=== PATIENT | male | born 1940 | race Caucasian/White ===

== ENCOUNTER → 2023-06-20 16:00 | Outpatient (REF) | payer MEDICARE, SELFPAY ==
[2023-06-21 17:58] LABS: Urine Albumin 3+ (Neg - Trace); Urine Bilirubin Negative (Negative); Urine Character Slightly Cloudy (Clear); Urine Color Yellow; Urine Glucose 2+ (Negative); Urine Ketone 1+ (Negative); Urine Leukocyte 2+ (Negative); Urine Nitrite Negative (Negative); Urine Occult Blood 4+ (Negative); Urine Specific Gravity 1.025 (<1.030); Urine Urobilinogen Negative (Neg - 1+)
[2023-06-21 18:02] LABS: Urine Bacteria Many (Negative); Urine Squamous Cell 16-20 /LPF (Few); Urine White Cell 50-60 /HPF (0-5)
== END ==
LOC: CLAB 16:00
PROVIDERS: ATTENDING PHYSICIAN Urology
DX: N40.1 Benign prostatic hyperplasia with lower urinary tract symptoms (principal); N40.0 Benign prostatic hyperplasia without lower urinary tract symptoms
CPT/HCPCS: 81003; 81015; 87077; 87086

== ENCOUNTER → 2023-07-28 08:38 | Outpatient (REF) | payer MEDICARE, SELFPAY ==
[2023-07-28 10:09] LABS: Urine Albumin 2+ (Neg - Trace); Urine Bilirubin Negative (Negative); Urine Character Clear (Clear); Urine Color Yellow; Urine Glucose 3+ (Negative); Urine Ketone Negative (Negative); Urine Leukocyte Negative (Negative); Urine Nitrite Negative (Negative); Urine Occult Blood Negative (Negative); Urine Specific Gravity 1.015 (<1.030); Urine Urobilinogen Negative (Neg - 1+)
[2023-07-28 10:20] LABS: % Basophils 0.6 % (0-2); % Eosinophils 3.2 % (0-6); % Immature Granulocytes 0.3 % (0-0.5); % Lymphocytes 17.4 % (20.5-51.1); % Monocytes 8.8 % (1.7-9.3); % Neutrophils 69.7 % (42.2-75.2); Absolute Eosinophils 0.2 10^3/uL (0-0.7); Absolute Lymphocytes 1.3 10^3/uL (1.2-3.4); Absolute Monocytes 0.6 10^3/uL (0.1-0.6); Hematocrit 42.4 % (39.0-52.0); Mean Corp Hgb Conc. 35.4 g/dL (33.0-37.0); Mean Corpuscular Hgb 34.2 pg (27.0-31.0); Mean Corpuscular Volume 96.6 fL (80.0-94.0); Mean Platelet Volume 11.3 fL (7.4-10.4); Nucleated Red Blood Cells % 0 % (-); Platelet Count 190 10^3/uL (130-400); Red Blood Cell Count 4.39 10^6/uL (4.70-6.10); Red Cell Dist. Width 11.7 % (11.5-14.5); White Blood Cell Count 7.2 10^3/uL (4.8-10.8)
[2023-07-28 10:37] LABS: ALT (SGPT) 26 U/L (0-50); AST (SGOT) 26 U/L (17-59); Albumin 4.1 g/dl (3.5-5.0); Alkaline Phosphatase 144 U/L (38-126); Blood Urea Nitrogen 18 mg/dl (9-20); Carbon Dioxide 23 mmol/L (22-30); Chloride 106 mmol/L (98-107); Glucose 218 mg/dl (70-99); HDL Cholesterol 41 mg/dl; LDL Cholesterol, Calculated 53 mg/dl; Potassium 4.1 mmol/L (3.5-5.1); Sodium 140 mmol/L (135-145); Total Bilirubin 1.2 mg/dl (0.2-1.3); Total Cholesterol 118 mg/dl (50-199); Total Protein 6.6 g/dl (6.3-8.2); Triglyceride 122 mg/dl (10-149); Very Low Density Lipoprotein 24 mg/dl (0-30); eGFR > 60.00
[2023-07-28 10:45] LABS: Protein/creatinine Ratio 1.9; Urine Protein 163 mg/dl
[2023-07-28 10:57] LABS: Vitamin D, 25-OH*** 36.8 ng/mL (30-80)
[2023-07-28 11:09] LABS: Urine Amorphous Seen; Urine Red Blood Cell 0-2 /HPF (0-2)
[2023-07-28 11:10] LABS: PSA, Total - Diagnostic 1.39 ng/ml (0.0-4.0)
[2023-07-28 12:02] LABS: Glycohemoglobin (HgbA1c) 8.7 % (4.0-5.6)
[2023-07-30 18:40] LABS: C-Peptide 3.5 ng/mL (0.5-3.3)
== END ==
LOC: REG 08:38
PROVIDERS: ATTENDING PHYSICIAN Internal Medicine Geriatric Medicine
DX: E11.9 Type 2 diabetes mellitus without complications (principal); E78.2 Mixed hyperlipidemia; I10 Essential (primary) hypertension; I25.10 Atherosclerotic heart disease of native coronary artery without angina pectoris; M35.3 Polymyalgia rheumatica; M48.061 Spinal stenosis, lumbar region without neurogenic claudication; Z98.890 Other specified postprocedural states; M17.0 Bilateral primary osteoarthritis of knee; K21.9 Gastro-esophageal reflux disease without esophagitis; N40.1 Benign prostatic hyperplasia with lower urinary tract symptoms; N40.0 Benign prostatic hyperplasia without lower urinary tract symptoms; Z13.89 Encounter for screening for other disorder; M51.36 Other intervertebral disc degeneration, lumbar region; R06.09 Other forms of dyspnea; I21.4 Non-ST elevation (NSTEMI) myocardial infarction; H81.10 Benign paroxysmal vertigo, unspecified ear; M25.561 Pain in right knee; M25.562 Pain in left knee; Z01.818 Encounter for other preprocedural examination; I25.2 Old myocardial infarction
CPT/HCPCS: 36415; 80053; 80061; 81003; 81015; 82306; 82570; 83036; 84153; 84156; 84681; 85025

== ENCOUNTER → 2023-08-05 14:24 | Outpatient (REF) | payer MEDICARE, SELFPAY | LOC: HWRCS 14:24 | PROVIDERS: ATTENDING PHYSICIAN Internal Medicine Cardiovascular Disease; FAMILY PHYSICIAN Internal Medicine Geriatric Medicine | DX: E78.2 Mixed hyperlipidemia (principal); I25.10 Atherosclerotic heart disease of native coronary artery without angina pectoris; I10 Essential (primary) hypertension; E11.9 Type 2 diabetes mellitus without complications; Z01.818 Encounter for other preprocedural examination; I48.91 Unspecified atrial fibrillation | CPT/HCPCS: 71046 ==

== ENCOUNTER → 2023-08-11 07:33 | Outpatient (REF) | payer MEDICARE, SELFPAY | LOC: HWRCS 07:33 | PROVIDERS: ATTENDING PHYSICIAN Internal Medicine Cardiovascular Disease; FAMILY PHYSICIAN Internal Medicine Geriatric Medicine | DX: E78.2 Mixed hyperlipidemia (principal); I25.10 Atherosclerotic heart disease of native coronary artery without angina pectoris; I10 Essential (primary) hypertension; E11.9 Type 2 diabetes mellitus without complications; Z01.818 Encounter for other preprocedural examination; I48.91 Unspecified atrial fibrillation | CPT/HCPCS: 93306 ==

== ENCOUNTER → 2023-08-12 10:59 | Outpatient (REF) | payer MEDICARE, SELFPAY | LOC: DHCBC/DCA 10:59 | PROVIDERS: ATTENDING PHYSICIAN Internal Medicine Cardiovascular Disease; FAMILY PHYSICIAN Internal Medicine Geriatric Medicine | DX: E78.2 Mixed hyperlipidemia (principal); I25.10 Atherosclerotic heart disease of native coronary artery without angina pectoris; I10 Essential (primary) hypertension; E11.9 Type 2 diabetes mellitus without complications; Z01.818 Encounter for other preprocedural examination; I48.91 Unspecified atrial fibrillation | CPT/HCPCS: 78452; 93017; A9500; J2785 ==

== ENCOUNTER 2023-08-15 06:13 | Inpatient (IN) | payer MEDICARE, SELFPAY ==
--- NOTE | 2023-07-27 13:30 | CM ---
Addendum entered by Leticia Adam 08/12/23 08:13:
Referral sent to [facility] through [employer] with request for start of care on 08/16.
Original Note:
Patient is scheduled for an elective R THR on 08/15/23. Spoke with patient prior to surgery via telephone. Introduced role of Orthopedic Navigator. Patient reports that he lives alone in a two story home. There are two steps to enter and a flight of
steps to the second floor. There is a powder room on the clerk entry level. He currently functions independently. He has no DME and had VN services after his prior THR in 2000. PCP is Dr. Serrano.
Discussed orthopedic program and post surgical plans. Reviewed anticipated length of stay and that goal is for him to return home at discharge. Also reviewed outpatient PT, VN services and DME he will need. Patient is in agreement with tentative
plan but will not have transport for outpatient PT and will need VN services (Options and PAC data reviewed; he selects VN). He is unsure if anyone will stay with him when he goes home.
Patient will complete online education.
Plan: Orthopedic Navigator will remain available to assist with the care of patient and will reassess discharge needs after surgery.
[2023-07-29 14:01] VITALS: BMI 33.9
[2023-07-29 14:08] VITALS: BMI 33.9
--- NOTE | 2023-08-05 15:01 | PTCARENOTE ---
Addendum entered by Cheyanne Garner RN 08/09/23 11:32:
PA made aware per request from Dr. Potts office.
Original Note:
HgA1C 8.7, Sudha at Dr. Potts office made aware.
[2023-08-15] VITALS (27 sets, daily range): BP systolic 102–204; BP diastolic 57–175; PULSE 96–100
[2023-08-15 07:45] LABS: Glucose - Point of Care 222 mg/dl (70-99)
[2023-08-15] MEDS: NORMOSOL-R 1000 IV ×2 (07:45→11:38)
[2023-08-15] MEDS: TYLENOL 650 MG PO ×4 (07:57→23:00)
[2023-08-15] MEDS: CELEBREX 200 MG PO (08:09)
[2023-08-15] MEDS: NOVOLOG vial 2 UNITS SC ×2 (08:14→10:55)
[2023-08-15] MEDS: ROXICODONE 5 MG PO ×2 (11:39→23:00)
--- NOTE | 2023-08-15 12:33 | PTCARENOTE ---
awaiting room assignment, pt. daughter updated on pt. status
[2023-08-15 13:00] LABS: Glucose - Point of Care 194 mg/dl (70-99)
[2023-08-15] MEDS: NOVOLOG FLEXPEN-MODERATE RESISTANCE 1 UNITS SC (13:49)
[2023-08-15] MEDS: NOVOLOG FLEXPEN 4 UNITS SC ×2 (13:49→19:37)
[2023-08-15] MEDS: NEURONTIN 300 MG PO (13:50)
--- NOTE | 2023-08-15 14:05 | PTCARENOTE ---
PT at bedside
[2023-08-15] MEDS: NOVOLOG FLEXPEN SC (15:45)
--- NOTE | 2023-08-15 15:45 | PTCARENOTE ---
Pt received from the PACU via bed. Transport was w/o incident. Pt is AAOx3, HR sl irreg. Lungs are clear, resp. easy, pulse ox 96%RA. Right hip w/ aquacell dressing to right hip C/D/I, no drainage at this time. Pt denies pain, denies nausea. Pt able
to wiggle toes and foot on right. Pt reports having full feeling to right lower ext. Pt instructed on plan of care. Pt verbalized understanding of instructions. Call lal is within reach.
[2023-08-15 17:51] LABS: Glucose - Point of Care 434 mg/dl (70-99)
[2023-08-15] MEDS: SERAX PO (18:05)
[2023-08-15] MEDS: GLUCOPHAGE 500 MG PO (18:07)
[2023-08-15] MEDS: LIPITOR 20 MG PO (18:07)
[2023-08-15] MEDS: ELIQUIS 2.5 MG PO (18:07)
[2023-08-15] MEDS: ANCEF 5 IV (18:08)
[2023-08-15] MEDS: THIAMINE INJECTION 200 MG IV (18:08)
[2023-08-15] MEDS: AMARYL 1 MG PO (18:10)
[2023-08-15] MEDS: NOVOLOG FLEXPEN-MODERATE RESISTANCE SC (18:10)
[2023-08-15 18:46] LABS: Glucose 417 mg/dl (70-99)
[2023-08-15] MEDS: COLACE 100 MG PO (19:35)
[2023-08-15] MEDS: BACTROBAN 2% OINTMENT 1 APPLIC NASAL (19:35)
[2023-08-15] MEDS: PROTONIX 40 MG PO (19:36)
[2023-08-15] MEDS: SENOKOT 17.1999999999999993 MG PO (19:36)
[2023-08-15] MEDS: FLOMAX 0.400000000000000022 MG PO (19:36)
[2023-08-15] MEDS: SERAX 10 MG PO (19:36)
[2023-08-15] MEDS: NOVOLOG FLEXPEN-MODERATE RESISTANCE 11 UNITS SC (19:37)
[2023-08-15] MEDS: LANTUS 0.100000000000000006 UNITS SC (19:40)
--- NOTE | 2023-08-15 19:45 | PTCARENOTE ---
at 1821 blood [id number] -informed Calista Triplett FAVOR MAKER- no new orders to give schedule meds and recheck in 2 hrs. administered Lantus 10units, and NovoLog 15 units total - see may. rechecked 2 hrs later [id number] informed Calista Triplett FAVOR MAKER administered
novolog 10units. pt has no symptoms. pt resting in bed.
[2023-08-15 22:00] LABS: Glucose - Point of Care 351 mg/dl (70-99)
[2023-08-15] MEDS: AMBIEN 5 MG PO (22:37)
[2023-08-15] MEDS: NOVOLOG FLEXPEN 10 UNITS SC (22:37)
[2023-08-16] VITALS (7 sets, daily range): BP systolic 95–148; BP diastolic 55–84; PULSE 56–89; O2SAT 96–98
--- NOTE | 2023-08-16 00:33 | PTCARENOTE ---
reviewed post op wound care, ambulation, and precautions. pt walked 100 feet in hallways w/ RW. pt report pain after walk given prn pain med w/+eff.
[2023-08-16] MEDS: ANCEF 5 IV (01:59)
[2023-08-16] MEDS: TYLENOL 650 MG PO ×3 (03:18→12:06)
[2023-08-16 07:17] LABS: Glucose - Point of Care 244 mg/dl (70-99)
[2023-08-16] MEDS: NOVOLOG FLEXPEN-MODERATE RESISTANCE 3 UNITS SC (08:40)
[2023-08-16] MEDS: NOVOLOG FLEXPEN 4 UNITS SC ×2 (08:40→12:04)
[2023-08-16] MEDS: GLUCOPHAGE 500 MG PO (08:41)
[2023-08-16] MEDS: SENOKOT 17.1999999999999993 MG PO (08:42)
[2023-08-16] MEDS: ZESTRIL 20 MG PO (08:42)
[2023-08-16] MEDS: AMARYL 1 MG PO (08:42)
[2023-08-16] MEDS: ELIQUIS 2.5 MG PO (08:42)
[2023-08-16] MEDS: PROTONIX 40 MG PO (08:42)
[2023-08-16] MEDS: FLOMAX 0.400000000000000022 MG PO (08:42)
[2023-08-16] MEDS: ROXICODONE 5 MG PO (08:42)
[2023-08-16] MEDS: SERAX 10 MG PO (08:43)
[2023-08-16] MEDS: COLACE 100 MG PO (08:43)
[2023-08-16] MEDS: IMDUR (EXTENDED RELEASE) 30 MG PO (08:43)
[2023-08-16] MEDS: THIAMINE INJECTION 200 MG IV (08:43)
[2023-08-16] MEDS: LANTUS 0.100000000000000006 UNITS SC (08:49)
[2023-08-16] MEDS: CARDIZEM CD 180 MG PO (08:51)
[2023-08-16] MEDS: BACTROBAN 2% OINTMENT 1 APPLIC NASAL (08:51)
--- NOTE | 2023-08-16 09:20 | CM ---
Reviewed chart and held rounds with PT, OT and nursing. Patient admitted as planned for elective R THR. Met with patient at bedside. Confirmed information previously obtained for assessment. Also discussed discharge plans. The plan is for patient to
return home at discharge. His daughter will be staying with him for the week. Reviewed VN services including start of care (tentatively 08/16), services to be ordered (PT, OT, SN) and frequency/duration of services. Options list provided and PAC
data reviewed. Patient selects [facility].
Patient has a rolling walker, raised toilet seat, hip kit, grab bars in shower, raised toilet seat with rails and a cane at home.
His daughter will bring in new walker to be adjusted by PT.
VN referral was completed and sent to [facility] through [employer] with request for start of care on 08/16. Confirmation received of their ability to accept case. medical records clerk to fax discharge instructions to [facility] when complete.
Navigator checked winter of Eliquis per PA request. Patient to be discharged on Eliquis. Cost for 30 day supply of 5 mg is $47.00. Patient stated he is able to afford this medication.
Patient will use [facility] pharmacy for discharge prescriptions.
--- NOTE | 2023-08-16 10:09 | W.PN.ORTHO ---
Today's Communication / Plan
-
d/c
Assessment
.
Distal Motor Intact: Yes
Dressing:
Clean, dry and intact.
Assessment:
Afibb-rate controlled on Diltiazem-stable on tele-Eliquis initiated
CAD-s/p PCI AAKASH to distal RCA 2002, residual multivessel stenosis--continue asa 81mg w/ statin
Type 2 IDDM-uncontrolled--A1C 8.7--SSI and standing Novolog as well as Lantus utilized during stay-oral hypoglycemics will be increased OP w/ Endocrine visit and strict carb control advised--Cefadroxil ppx
Daily ETOH-Serax, Thimine and Gabapentin-stable
Plan
.
Surgery / Date: R DERICK 08/15/23 CBB
Activity:
Out of bed.
PT/OT
Discharge Plan: Home w/ VN
Subjective
.
.:
Patient resting comfortably.
Vital Signs and Labs
.
Vital Signs and Labs:
Lab Results
07/29/23 13:33
08/15/23 18:21
Temp Pulse Resp BP Pulse Ox
97.8 F 66 20 148/81 97
08/16/23 07:52 08/16/23 07:52 08/16/23 07:52 08/16/23 07:52 08/16/23 07:52
Non-invasive Hgb result: 12.3
Physical Exam
-
HEENT: No pallor, cyanosis, or jaundice. Throat clear.
NECK: Supple. No JVD.
RESPIRATORY: Lungs clear to auscultation.
CVS: S1, S2 normal. RRR.� No murmur, rub or gallop.
ABDOMEN: Soft, non-tender. No distension. BS+/normal.
EXTREMITIES: strength equal, no calf pain with palpation
CONSTRUCTION PIT WORKER: AOx3. No focal deficits. supervising nurse grossly intact
--- NOTE | 2023-08-16 10:33 | W.DS.TRANS ---
DC Summary - Documentation Consultant
-
Discharge Instructions:
Sleep Apnea Risk Intermediate
Discharge Diagnosis/Procedures R DERICK 08/15/23 CBB
Diet Diabetic, Carb Controlled
Additional Diets very strict carb control
Activity With Walker
Driving Restrictions No driving
Bathing Restrictions OK to Shower
Other Services VN,PT,OT
Instructions:
Stand-Alone Forms: Total Hip/Knee Replacement D/C
Changes to Home Medications: Yes
Discharge Medications:
DC Medications w/original date entered in [employer]
tamsulosin 0.4 mg capsule 0.4 mg PO BID 06/06/14
zolpidem 10 mg tablet (Ambien) 10 mg PO HS 06/06/14
cholecalciferol (vitamin D3) 25 mcg (1,000 unit) capsule (Vitamin D3) 1,000 unit PO DAILY 06/06/17
diltiazem HCl 180 mg capsule,extended release 24 hr 180 mg PO DAILY 06/06/17
lisinopril 20 mg tablet 20 mg PO DAILY 06/06/17
aspirin 81 mg tablet,delayed release 81 mg PO DAILY 08/19/17
Pantoprazole Sodium 40 mg PO BID 05/19/18
atorvastatin 20 mg tablet 20 mg PO QPM #90 tabs 05/19/18
nitroglycerin 0.4 mg sublingual tablet 0.4 mg sublingual [id number] PRN chest pain #25 tabs 05/19/18
isosorbide mononitrate 30 mg tablet,extended release 24 hr 30 mg PO DAILY 07/27/23
metformin 500 mg tablet 500 mg PO BID 07/27/23
mupirocin 2 % topical ointment 1 applic topical BID infection prevention #1 tube 07/29/23
Saccharomyces boulardii 250 mg capsule (Florastor) 250 mg PO BID #1 cap 08/16/23
apixaban 5 mg tablet (Eliquis) 2.5 mg (1/2 x 5 mg) PO BID afibb/blood clot prevent #60 tabs 08/16/23
cefadroxil 500 mg capsule 500 mg PO BID infection prevention #14 caps 08/16/23
docusate sodium 100 mg capsule (Colace) 100 mg PO BID stool softner #1 cap 08/16/23
gabapentin 300 mg capsule 300 mg PO BID sleep/pain #14 caps 08/16/23
glimepiride 1 mg tablet 1 mg PO BID Diabetes #60 tabs 08/16/23
magnesium hydroxide 400 mg/5 mL oral suspension (Milk of Magnesia) 30 ml PO HS PRN Constipation #1 mL 08/16/23
oxycodone 5 mg tablet 5 mg PO Q6H PRN 1 tab moderate pain, 2 tabs severe pain #30 tabs 08/16/23
sennosides 8.6 mg tablet (Senokot) 17.2 mg (2 x 8.6 mg) PO BID laxative #2 tabs 08/16/23
thiamine HCl (vitamin B1) 250 mg tablet 250 mg PO DAILY #1 tab 08/16/23
Home Medication Changes
apixaban 5 mg tablet (Eliquis) 2.5 mg (1/2 x 5 mg) PO BID afibb/blood clot prevent #60 tabs 08/16/23�
cefadroxil 500 mg capsule 500 mg PO BID infection prevention #14 caps 08/16/23�
gabapentin 300 mg capsule 300 mg PO BID sleep/pain #14 caps 08/16/23�
glimepiride 1 mg tablet 1 mg PO BID Diabetes #60 tabs 08/16/23�
oxycodone 5 mg tablet 5 mg PO Q6H PRN 1 tab moderate pain, 2 tabs severe pain #30 tabs 08/16/23�
thiamine HCl (vitamin B1) 250 mg tablet 250 mg PO DAILY #1 tab 08/16/23�
Pending Results: No
[2023-08-16 11:10] LABS: Glucose 209 mg/dl (70-99)
--- NOTE | 2023-08-16 12:00 | PTCARENOTE ---
Diabetes Education- Met with Murray and his daughter (visiting from [place]) in room for glucometer instructions. A1C 8.7%, 07/28/23. AIRPORT MANAGER taking Metformin 500 mg with breakfast and 2000, recommend taking with breakfast and dinner, as well as Glimepiride 1
mg BID. This dose was recently increased from QD to BID.Recommend taking this prior to breakfast and dinner. States he is 90% compliant in taking medications. Provided with and instructions given on the Contour NExt EZ glucometer, fair return
demonstration with result of 277 mg/dl pre lunch. He has some dexterity issues with his hands which created issues with the lancing device cap, had him practice a few times. Education booklet with testing pattern and expected results marked for
reference. Discussed actions and side effects of medications and importance of reducing CHO intake. TO call his PCP on Tuesday with results of blood sugars (log sheet provided). Daughter will be staying until the weekend to help reinforce
information. Phone number provided for follow up questions. Information on outpt DSME classes given.
[2023-08-16 12:02] LABS: Glucose - Point of Care 272 mg/dl (70-99)
[2023-08-16] MEDS: ProAmatine 5 MG PO ×2 (12:04→14:46)
[2023-08-16] MEDS: NORMOSOL-R 500 IV (12:04)
[2023-08-16] MEDS: NOVOLOG FLEXPEN-MODERATE RESISTANCE 5 UNITS SC (12:05)
[2023-08-16] MEDS: LANTUS 0.0500000000000000028 UNITS SC (12:18)
[2023-08-16] MEDS: ProAmatine PO (14:46)
--- NOTE | 2023-08-16 15:24 | PTCARENOTE ---
Rn flow student support advisor-Patient cleared for d/c. Paged the Physical physical therapy asst to transport patient to car.
[2023-08-18 13:02] LABS: Glucose - Point of Care 209 mg/dl (70-99)
== END 2023-08-16 15:42 | disposition home health service (06) | DRG 470 ==
LOC: 2 SOUTH 06:13
PROVIDERS: Physician Assistant Medical; ADMITTING PHYSICIAN Specialist; FAMILY PHYSICIAN Internal Medicine Geriatric Medicine
PROC: 0SR902Z Replacement of Right Hip Joint with Metal on Polyethylene Synthetic Substitute, Open Approach (ICD-10-PCS; 2023-08-15)
DX: M16.11 Unilateral primary osteoarthritis, right hip (principal); E11.65 Type 2 diabetes mellitus with hyperglycemia; E66.9 Obesity, unspecified; Z68.33 Body mass index [BMI] 33.0-33.9, adult; I10 Essential (primary) hypertension; M35.3 Polymyalgia rheumatica; G47.00 Insomnia, unspecified; E78.2 Mixed hyperlipidemia; I25.10 Atherosclerotic heart disease of native coronary artery without angina pectoris; I48.91 Unspecified atrial fibrillation; K21.9 Gastro-esophageal reflux disease without esophagitis; M48.00 Spinal stenosis, site unspecified; N40.0 Benign prostatic hyperplasia without lower urinary tract symptoms; R91.1 Solitary pulmonary nodule; Z96.612 Presence of left artificial shoulder joint; Z96.642 Presence of left artificial hip joint; Z79.82 Long term (current) use of aspirin; Z79.84 Long term (current) use of oral hypoglycemic drugs; Z79.899 Other long term (current) drug therapy; Z95.5 Presence of coronary angioplasty implant and graft; Z87.891 Personal history of nicotine dependence; Z88.2 Allergy status to sulfonamides
CPT/HCPCS: 36415; 73502; 78452; 82947; 82962; 87070; 93005; 93017; 97110; 97116; 97162; 97166; 97530; 97535; A9500; J2785

== ENCOUNTER → 2023-08-19 13:24 | Outpatient (REF) | payer MEDICARE, SELFPAY | LOC: REG 13:24 | PROVIDERS: ATTENDING PHYSICIAN Internal Medicine Geriatric Medicine; REFERRING PHYSICIAN Specialist | DX: R19.7 Diarrhea, unspecified (principal) | CPT/HCPCS: 87324; 87449 ==

== ENCOUNTER 2023-10-12 08:54 | Outpatient (RCR) | payer MEDICARE, SELFPAY | END 2023-10-12 23:59 | disposition home or self-care (01) | LOC: RPT 08:54 | PROVIDERS: ATTENDING PHYSICIAN Specialist; FAMILY PHYSICIAN Internal Medicine Geriatric Medicine | DX: Z47.1 Aftercare following joint replacement surgery (principal); Z96.641 Presence of right artificial hip joint; Z73.6 Limitation of activities due to disability | CPT/HCPCS: 97110; 97161; 97530 ==

== ENCOUNTER 2023-11-04 08:49 | Outpatient (RCR) | payer MEDICARE, SELFPAY | END 2023-11-04 23:59 | disposition home or self-care (01) | LOC: RPT 08:49 | PROVIDERS: ATTENDING PHYSICIAN Specialist; FAMILY PHYSICIAN Internal Medicine Geriatric Medicine | DX: Z47.1 Aftercare following joint replacement surgery (principal); Z96.641 Presence of right artificial hip joint; Z73.6 Limitation of activities due to disability | CPT/HCPCS: 97110 ==

== ENCOUNTER → 2023-11-16 08:32 | Outpatient (REF) | payer MEDICARE, SELFPAY ==
[2023-11-16 11:52] LABS: ALT (SGPT) 13 U/L (0-50); AST (SGOT) 21 U/L (17-59); Alkaline Phosphatase 140 U/L (38-126); Blood Urea Nitrogen 23 mg/dl (9-20); Carbon Dioxide 19 mmol/L (22-30); Chloride 106 mmol/L (98-107); Glucose 160 mg/dl (70-99); Potassium 3.8 mmol/L (3.5-5.1); Sodium 143 mmol/L (135-145); Total Bilirubin 1.2 mg/dl (0.2-1.3); Total Protein 6.2 g/dl (6.3-8.2); eGFR > 60.00
[2023-11-16 12:41] LABS: Glycohemoglobin (HgbA1c) 5.6 % (4.0-5.6)
[2023-11-17 23:52] LABS: C-Peptide 3.5 ng/mL (0.5-3.3)
== END ==
LOC: REG 08:32
PROVIDERS: ATTENDING PHYSICIAN Internal Medicine Geriatric Medicine
DX: E11.9 Type 2 diabetes mellitus without complications (principal); E78.2 Mixed hyperlipidemia; E11.65 Type 2 diabetes mellitus with hyperglycemia
CPT/HCPCS: 36415; 80053; 83036; 84681

== ENCOUNTER 2023-11-23 10:18 | Outpatient (RCR) | payer MEDICARE, SELFPAY | END 2023-11-23 13:00 | disposition home or self-care (01) | LOC: RPT 10:18 | PROVIDERS: ATTENDING PHYSICIAN Specialist; FAMILY PHYSICIAN Internal Medicine Geriatric Medicine | DX: Z47.1 Aftercare following joint replacement surgery (principal); Z73.6 Limitation of activities due to disability; R26.2 Difficulty in walking, not elsewhere classified; M62.81 Muscle weakness (generalized); Z96.641 Presence of right artificial hip joint | CPT/HCPCS: 97110; 97112 ==

== ENCOUNTER → 2023-11-28 13:22 | Outpatient (REF) | payer MEDICARE, SELFPAY ==
[2023-11-28 14:17] LABS: % Basophils 0.8 % (0-2); % Eosinophils 4.1 % (0-6); % Immature Granulocytes 0.3 % (0-0.5); % Lymphocytes 18.1 % (20.5-51.1); % Monocytes 10.1 % (1.7-9.3); % Neutrophils 66.6 % (42.2-75.2); Absolute Basophils 0.1 10^3/uL (0-0.2); Absolute Eosinophils 0.3 10^3/uL (0-0.7); Absolute Lymphocytes 1.1 10^3/uL (1.2-3.4); Absolute Monocytes 0.6 10^3/uL (0.1-0.6); Absolute Neutrophils 4.2 10^3/uL (1.4-6.5); Hematocrit 39.5 % (39.0-52.0); Hemoglobin 13.5 g/dL (13.0-18.0); Mean Corp Hgb Conc. 34.2 g/dL (33.0-37.0); Mean Corpuscular Hgb 32.5 pg (27.0-31.0); Mean Platelet Volume 10.6 fL (7.4-10.4); Nucleated Red Blood Cells % 0 % (-); Platelet Count 199 10^3/uL (130-400); Red Blood Cell Count 4.16 10^6/uL (4.70-6.10); Red Cell Dist. Width 13.8 % (11.5-14.5); White Blood Cell Count 6.3 10^3/uL (4.8-10.8)
[2023-11-28 14:23] LABS: Erythrocyte Sed Rate 19 mm/hour (0-20)
[2023-11-28 15:04] LABS: ALT (SGPT) 15 U/L (0-50); AST (SGOT) 21 U/L (17-59); Albumin 4.1 g/dl (3.5-5.0); Alkaline Phosphatase 107 U/L (38-126); Blood Urea Nitrogen 20 mg/dl (9-20); Calcium 9.4 mg/dl (8.4-10.2); Carbon Dioxide 19 mmol/L (22-30); Chloride 106 mmol/L (98-107); Glucose 150 mg/dl (70-99); Potassium 4.2 mmol/L (3.5-5.1); Sodium 142 mmol/L (135-145); Total Bilirubin 0.9 mg/dl (0.2-1.3); Total Protein 6.3 g/dl (6.3-8.2); eGFR > 60.00
[2023-11-28 15:06] LABS: C-Reactive Protein < 5.00 mg/L (0.0-10.00)
== END ==
LOC: REG 13:22
PROVIDERS: ATTENDING PHYSICIAN Internal Medicine Rheumatology; FAMILY PHYSICIAN Internal Medicine Geriatric Medicine
DX: M06.00 Rheumatoid arthritis without rheumatoid factor, unspecified site (principal)
CPT/HCPCS: 36415; 80053; 85025; 85652; 86140

== ENCOUNTER → 2024-02-17 07:57 | Outpatient (REF) | payer MEDICARE, SELFPAY ==
[2024-02-17 09:00] LABS: % Basophils 0.9 % (0-2); % Eosinophils 3.5 % (0-6); % Immature Granulocytes 0.3 % (0-0.5); % Lymphocytes 20.4 % (20.5-51.1); % Monocytes 10.7 % (1.7-9.3); % Neutrophils 64.2 % (42.2-75.2); Absolute Basophils 0.1 10^3/uL (0-0.2); Absolute Eosinophils 0.2 10^3/uL (0-0.7); Absolute Lymphocytes 1.4 10^3/uL (1.2-3.4); Absolute Monocytes 0.7 10^3/uL (0.1-0.6); Absolute Neutrophils 4.4 10^3/uL (1.4-6.5); Hematocrit 41.8 % (39.0-52.0); Hemoglobin 14.3 g/dL (13.0-18.0); Mean Corp Hgb Conc. 34.2 g/dL (33.0-37.0); Mean Corpuscular Hgb 33.6 pg (27.0-31.0); Mean Corpuscular Volume 98.4 fL (80.0-94.0); Mean Platelet Volume 10.9 fL (7.4-10.4); Nucleated Red Blood Cells % 0 % (-); Platelet Count 204 10^3/uL (130-400); Red Blood Cell Count 4.25 10^6/uL (4.70-6.10); Red Cell Dist. Width 14.1 % (11.5-14.5); White Blood Cell Count 6.8 10^3/uL (4.8-10.8)
[2024-02-17 09:13] LABS: Urine Albumin 2+ (Neg - Trace); Urine Bilirubin Negative (Negative); Urine Character Clear (Clear); Urine Color Yellow; Urine Glucose Negative (Negative); Urine Ketone Negative (Negative); Urine Leukocyte Negative (Negative); Urine Nitrite Negative (Negative); Urine Occult Blood Negative (Negative); Urine Urobilinogen Negative (Neg - 1+)
[2024-02-17 09:35] LABS: ALT (SGPT) 16 U/L (0-50); AST (SGOT) 21 U/L (17-59); Albumin 4.1 g/dl (3.5-5.0); Alkaline Phosphatase 104 U/L (38-126); Blood Urea Nitrogen 26 mg/dl (9-20); Calcium 9.1 mg/dl (8.4-10.2); Carbon Dioxide 21 mmol/L (22-30); Chloride 107 mmol/L (98-107); Glucose 105 mg/dl (70-99); HDL Cholesterol 48 mg/dl; LDL Cholesterol, Calculated 58 mg/dl; Potassium 4.3 mmol/L (3.5-5.1); Sodium 144 mmol/L (135-145); Total Bilirubin 0.9 mg/dl (0.2-1.3); Total Cholesterol 120 mg/dl (50-199); Total Protein 6.4 g/dl (6.3-8.2); Triglyceride 73 mg/dl (10-149); Very Low Density Lipoprotein 14 mg/dl (0-30); eGFR 59.26
[2024-02-17 09:55] LABS: Vitamin D, 25-OH*** 39.4 ng/mL (30-80)
[2024-02-17 10:32] LABS: Urine Squamous Cell 26-30 /LPF (Few)
[2024-02-17 10:33] LABS: Glycohemoglobin (HgbA1c) 6.1 % (4.0-5.6); Urine Amorphous Seen
[2024-02-17 10:36] LABS: Urine Granular Cast 0-2 /LPF (0)
[2024-02-17 10:38] LABS: Urine Hyaline Cast 0-2 /LPF (0-2)
[2024-02-17 10:39] LABS: Urine Red Blood Cell 0-2 /HPF (0-2); Urine White Cell 0-2 /HPF (0-5)
== END ==
LOC: REG 07:57
PROVIDERS: ATTENDING PHYSICIAN Internal Medicine Geriatric Medicine
DX: E78.2 Mixed hyperlipidemia (principal); E11.9 Type 2 diabetes mellitus without complications; I10 Essential (primary) hypertension; I25.10 Atherosclerotic heart disease of native coronary artery without angina pectoris; M48.061 Spinal stenosis, lumbar region without neurogenic claudication; M17.0 Bilateral primary osteoarthritis of knee; K21.9 Gastro-esophageal reflux disease without esophagitis; N40.1 Benign prostatic hyperplasia with lower urinary tract symptoms; R06.09 Other forms of dyspnea; I21.4 Non-ST elevation (NSTEMI) myocardial infarction; M25.561 Pain in right knee; M25.562 Pain in left knee; E11.42 Type 2 diabetes mellitus with diabetic polyneuropathy; E55.9 Vitamin D deficiency, unspecified
CPT/HCPCS: 36415; 80053; 80061; 81003; 81015; 82306; 83036; 85025

== ENCOUNTER → 2024-02-28 08:42 | Outpatient (REF) | payer MEDICARE, SELFPAY ==
[2024-02-28 09:06] LABS: Urine Albumin 1+ (Neg - Trace); Urine Bilirubin Negative (Negative); Urine Character Clear (Clear); Urine Color Yellow; Urine Glucose Negative (Negative); Urine Ketone Negative (Negative); Urine Leukocyte Negative (Negative); Urine Nitrite Negative (Negative); Urine Occult Blood Negative (Negative); Urine Specific Gravity 1.015 (<1.030); Urine Urobilinogen Negative (Neg - 1+)
[2024-02-28 10:19] LABS: Urine Red Blood Cell 0-2 /HPF (0-2); Urine White Cell 0-2 /HPF (0-5)
== END ==
LOC: REG 08:42
PROVIDERS: ATTENDING PHYSICIAN Internal Medicine Geriatric Medicine
DX: R80.9 Proteinuria, unspecified (principal)
CPT/HCPCS: 81003; 81015

== ENCOUNTER → 2024-03-19 09:23 | Outpatient (REF) | payer MEDICARE, SELFPAY ==
[2024-03-19 11:27] LABS: Urine Protein 128 mg/dl (0-12)
[2024-03-19 11:28] LABS: 24 Hour Urine Total Volume 750 ml
== END ==
LOC: REG 09:23
PROVIDERS: ATTENDING PHYSICIAN Internal Medicine Geriatric Medicine
DX: R80.9 Proteinuria, unspecified (principal)
CPT/HCPCS: 81050; 84156

== ENCOUNTER → 2024-07-02 09:06 | Outpatient (REF) | payer MEDICARE, SELFPAY ==
[2024-07-02 10:04] LABS: % Basophils 0.6 % (0-2); % Eosinophils 2.1 % (0-6); % Immature Granulocytes 0.3 % (0-0.5); % Monocytes 9.1 % (1.7-9.3); % Neutrophils 71.9 % (42.2-75.2); Absolute Eosinophils 0.1 10^3/uL (0-0.7); Absolute Lymphocytes 1.1 10^3/uL (1.2-3.4); Absolute Monocytes 0.6 10^3/uL (0.1-0.6); Absolute Neutrophils 4.8 10^3/uL (1.4-6.5); Hematocrit 45.1 % (39.0-52.0); Hemoglobin 15.9 g/dL (13.0-18.0); Mean Corp Hgb Conc. 35.3 g/dL (33.0-37.0); Mean Corpuscular Volume 99.3 fL (80.0-94.0); Nucleated Red Blood Cells % 0 % (-); Platelet Count 201 10^3/uL (130-400); Red Blood Cell Count 4.54 10^6/uL (4.70-6.10); Red Cell Dist. Width 13.3 % (11.5-14.5); White Blood Cell Count 6.6 10^3/uL (4.8-10.8)
[2024-07-02 10:32] LABS: ALT (SGPT) 16 U/L (0-50); AST (SGOT) 19 U/L (17-59); Albumin 4.4 g/dl (3.5-5.0); Alkaline Phosphatase 114 U/L (38-126); Blood Urea Nitrogen 18 mg/dl (9-20); Calcium 9.4 mg/dl (8.4-10.2); Carbon Dioxide 22 mmol/L (22-30); Chloride 109 mmol/L (98-107); Glucose 153 mg/dl (70-99); HDL Cholesterol 56 mg/dl; LDL Cholesterol, Calculated 83 mg/dl; Magnesium 1.7 mg/dl (1.6-2.3); Potassium 4.6 mmol/L (3.5-5.1); Sodium 142 mmol/L (135-145); Total Bilirubin 1.3 mg/dl (0.2-1.3); Total Cholesterol 152 mg/dl (50-199); Total Protein 6.4 g/dl (6.3-8.2); Triglyceride 68 mg/dl (10-149); Very Low Density Lipoprotein 13 mg/dl (0-30); eGFR > 60.00
[2024-07-02 10:43] LABS: Glycohemoglobin (HgbA1c) 6.5 % (4.0-5.6)
[2024-07-02 11:31] LABS: Microalbumin, Random Urine > 57.0 mg/dl (0.6-1.7)
[2024-07-03 19:37] LABS: C-Peptide 3.4 ng/mL (0.5-3.3)
== END ==
LOC: REG 09:06
PROVIDERS: ATTENDING PHYSICIAN Internal Medicine Geriatric Medicine
DX: E11.9 Type 2 diabetes mellitus without complications (principal); E78.2 Mixed hyperlipidemia; I10 Essential (primary) hypertension; I25.10 Atherosclerotic heart disease of native coronary artery without angina pectoris; M48.061 Spinal stenosis, lumbar region without neurogenic claudication; M17.0 Bilateral primary osteoarthritis of knee; K21.9 Gastro-esophageal reflux disease without esophagitis; N40.1 Benign prostatic hyperplasia with lower urinary tract symptoms; R06.09 Other forms of dyspnea; M25.561 Pain in right knee; Z13.89 Encounter for screening for other disorder; M25.562 Pain in left knee; E11.42 Type 2 diabetes mellitus with diabetic polyneuropathy
CPT/HCPCS: 36415; 80053; 80061; 81256; 82043; 82570; 83036; 83735; 84681; 85025

== ENCOUNTER → 2024-10-30 07:56 | Outpatient (REF) | payer MEDICARE, SELFPAY ==
--- NOTE | 2024-10-30 08:51 | CARDSERVLU ---
Echocardiogram with Lumason completed after protocol screening completed. Allergies verified.
Patent IV site: __Rt hand___
IV site flushed with 0.9% NaCl pre and post administration.
Diluted bolus method utilized to enhance visualization of ventricular gonzáles.
Total volume given: __4.5__ mL
Patient tolerated all procedures well without complications.
#22 dez placed Rt hand. Lumason given. INT d/c'd. pressure held. no bleeding noted.
== END ==
LOC: RCS 07:56
PROVIDERS: ATTENDING PHYSICIAN Internal Medicine Cardiovascular Disease; FAMILY PHYSICIAN Internal Medicine Geriatric Medicine
DX: I25.10 Atherosclerotic heart disease of native coronary artery without angina pectoris (principal)
CPT/HCPCS: 93306; Q9950

== ENCOUNTER → 2024-11-02 07:08 | Outpatient (REF) | payer MEDICARE, SELFPAY ==
[2024-11-02] MEDS: LEXISCAN 0.4 MG IV (09:55)
[2024-11-02] MEDS: AMINOPHYLLINE 75 MG IV (11:16)
== END ==
LOC: RCS 07:08
PROVIDERS: ATTENDING PHYSICIAN Internal Medicine Cardiovascular Disease; FAMILY PHYSICIAN Internal Medicine Geriatric Medicine
DX: I25.10 Atherosclerotic heart disease of native coronary artery without angina pectoris (principal); I44.7 Left bundle-branch block, unspecified
CPT/HCPCS: 78452; 93017; A9500; J2785

== ENCOUNTER → 2024-12-03 08:40 | Outpatient (REF) | payer MEDICARE, SELFPAY ==
[2024-12-03 09:20] LABS: Hematocrit 44.2 % (39.0-52.0); Hemoglobin 15.3 g/dL (13.0-18.0); Mean Corp Hgb Conc. 34.6 g/dL (33.0-37.0); Mean Corpuscular Volume 97.8 fL (80.0-94.0); Nucleated Red Blood Cells % 0 % (-); Platelet Count 188 10^3/uL (130-400); Red Cell Dist. Width 12.3 % (11.5-14.5)
[2024-12-03 09:52] LABS: ALT (SGPT) 19 U/L (0-50); AST (SGOT) 24 U/L (17-59); HDL Cholesterol 53 mg/dl; LDL Cholesterol, Calculated 62 mg/dl; Very Low Density Lipoprotein 17 mg/dl (0-30)
[2024-12-03 09:56] LABS: C-Reactive Protein < 5.00 mg/L (0.0-10.00)
== END ==
LOC: REG 08:40
PROVIDERS: ATTENDING PHYSICIAN Physician Assistant Surgical; FAMILY PHYSICIAN Internal Medicine Geriatric Medicine; OTHER PHYSICIAN Nurse Practitioner
DX: I25.10 Atherosclerotic heart disease of native coronary artery without angina pectoris (principal); Z96.642 Presence of left artificial hip joint; M25.552 Pain in left hip
CPT/HCPCS: 36415; 73700; 80061; 84450; 84460; 85025; 85652; 86140

== ENCOUNTER 2024-12-06 23:44 | Inpatient (IN) | payer MEDICARE, SELFPAY ==
[2024-12-06 20:53] VITALS: BP 181/117
[2024-12-06 21:27] LABS: Hematocrit 45.3 % (39.0-52.0); Hemoglobin 16.3 g/dL (13.0-18.0); Mean Corp Hgb Conc. 36.0 g/dL (33.0-37.0); Mean Corpuscular Volume 96.6 fL (80.0-94.0); Nucleated Red Blood Cells % 0 % (-); Platelet Count 213 10^3/uL (130-400); Red Cell Dist. Width 12.1 % (11.5-14.5)
[2024-12-06 21:46] LABS: ALT (SGPT) 20 U/L (0-50); AST (SGOT) 28 U/L (17-59); Albumin 4.6 g/dl (3.5-5.0); Alkaline Phosphatase 104 U/L (38-126); Blood Urea Nitrogen 19 mg/dl (9-20); Calcium 9.4 mg/dl (8.4-10.2); Carbon Dioxide 18 mmol/L (22-30); Chloride 107 mmol/L (98-107); Glucose 160 mg/dl (70-99); Potassium 4.0 mmol/L (3.5-5.1); Sodium 137 mmol/L (135-145); Total Protein 6.9 g/dl (6.3-8.2); eGFR > 60.00
[2024-12-06 21:49] LABS: Troponin I 0.089 ng/ml
[2024-12-06 22:08] VITALS: BP 143/119
[2024-12-06 22:13] VITALS: BMI 33.4
[2024-12-06] MEDS: NITROSTAT (SUBLINGUAL) 1.2 MG SL (22:21)
--- NOTE | 2024-12-06 22:40 | ED.GENMED ---
History of Present Illness
General
Chief Complaint: Chest Pain
Source: patient
Exam Limitations: none
Time Seen by Provider: 12/06/24 21:58
Nursing documentation reviewed up to this point in time: agreed with
History of Present Illness
History of Present Illness:
Note:
CHIEF COMPLAINT(S)
Chest pain or pressure.
HISTORY OF PRESENT ILLNESS
The patient is an 84-year-old male presenting with chest pain or pressure that began around 3 PM today. The pain is located in the center of the chest and has not radiated elsewhere. The patient denies having experienced this specific type of chest
pain or pressure before. He has a history of numerous past heart attacks and recalls a blocked artery that could not be treated. He was seen by a ecommerce project manager approximately one month ago but cannot recall the cardiologists name. The chest pain
persists intermittently at the time of this evaluation. The patient notes a slightly elevated troponin level indicating possible cardiac stress or injury. He reports episodes of a rapid heart rate and has a history of atrial fibrillation. He is
currently on Eliquis, a blood thinner.
The patient denies shortness of breath or leg swelling but mentions difficulty achieving a full lung of air. He does not report any abdominal pain. He stated he took four baby aspirin today, as instructed.
PAST MEDICAL HISTORY
History of myocardial infarctions. Known arterial blockage that was deemed untreatable. History of atrial fibrillation.
MEDICATIONS
Eliquis (Apixaban) for blood thinning.
Aspirin, as taken today (four baby aspirin).
REVIEW OF SYSTEMS
- Cardiovascular: Chest pain located in the center, history of heart attacks, history of atrial fibrillation.
- Respiratory: Difficulty achieving a full lung of air, no shortness of breath.
- Gastrointestinal: No abdominal pain reported.
- Dermatological: No mention of leg swelling.
PHYSICAL EXAM
General: Alert, no acute distress.
Skin: Warm, dry.
Head: Normocephalic, atraumatic.
Neck: Supple, trachea midline.
Eye Ears, nose, mouth and throat: Oral mucosa moist.
Cardiovascular: Normal peripheral perfusion, no edema. Irregularly irregular rate and rhythm
Respiratory: Non-labored respirations.
Gastrointestinal: Abdomen nondistended.
Back: Normal range of motion, Normal alignment.
Musculoskeletal: Normal range of motion, normal strength.
Neurological: Alert and oriented to person, place, time, and situation, no focal neurological deficit observed.
Psychiatric: Cooperative, appropriate mood and affect.
PROBLEM LIST
- Acute: Chest pain/pressure, possible myocardial ischemia.
- Chronic: History of myocardial infarctions, atrial fibrillation, untreated arterial blockage.
PLAN
- Administer nitroglycerin for chest pain management.
- Monitor cardiac enzymes, as troponin is mildly elevated.
- The patient is to be admitted for observation and further evaluation of chest pain and possible cardiac ischemia.
- Regular follow-ups with cardiology, considering the patients cardiac history.
DIFFERENTIAL DIAGNOSIS
The Differential Diagnosis includes, in no particular order and is not limited to:
- Acute myocardial infarction
- Unstable angina
- Atrial fibrillation with rapid ventricular response
- Aortic stenosis
- Pulmonary embolism
- Gastroesophageal reflux disease
- Costochondritis
- Pericarditis
- Anxiety or panic disorder
- Heart failure exacerbation
EKG
My independent EKG interpretation is:
- Time of EKG: Not specified in the professor of biochemistry.
- Rhythm: Atrial Fibrillation (AFib).
- Heart Rate: Rapid Basal Rate (RBR) of 103 beats per minute.
- Notable Intervals: Not specified in the professor of biochemistry.
- [place]: Not specified in the professor of biochemistry.
- Abnormalities Observed: No obvious evidence of ischemia present.
- Morphological Changes: None observed.
Disposition:
SUMMARY OF ENCOUNTER
An 84-year-old male presented to the emergency department with left-sided and substernal chest pain radiating down his left arm, starting at around 3 PM. The patient has a significant cardiac history, including inconclusive stress test results for
ischemia due to left bundle branch block and past experience with premature ventricular contractions (PVCs). An echocardiogram performed in October showed normal ventricular size, low normal systolic function, and no significant valvular disease,
with no changes compared to a previous study in July 2023. The patient reported a current chest pain intensity of less than one out of ten. On examination, a nitroglycerin paste was applied to the patients anterior chest wall, and the troponin level
was slightly elevated. Given his cardiac history and symptoms, the decision was made to admit the patient for further observation and management.
DISPOSITION
Admit
ASSESSMENT
The patient presents with chest pain suggestive of possible myocardial ischemia, with a history of complex cardiac issues.
PLAN
Administer nitroglycerin for chest pain management and admit the patient for observation and further evaluation of potential cardiac ischemia and other related cardiac conditions. Monitor cardiac enzymes due to the slightly elevated troponin level.
INDEPENDENT REVIEW OF LABS AND INTERPRETATION OF TESTS
My independent review of the EKG shows atrial fibrillation with a rapid basal rate of 103 beats per minute and no obvious evidence of ischemia present. My independent review of the laboratory findings is an elevated troponin level.
MEDICATION RECONCILIATION
Patient is currently on apixaban (Eliquis) for anticoagulation therapy.
MEDICAL DECISION MAKING
-Complexity of Data Reviewed: Chronic conditions affecting care include a history of myocardial infarctions, atrial fibrillation, and an untreated arterial blockage. Differential diagnosis includes acute myocardial infarction, unstable angina,
atrial fibrillation with rapid ventricular response, and other potential cardiac and non-cardiac causes.
-Data:
Category 1: External record reviewed indicates prior inconclusive stress test results and echocardiogram showing stable cardiac function.
My independent interpretation of EKG is atrial fibrillation with a rapid basal rate, and there is an indication of elevated troponin levels.
-Risk: The patient exhibits complex cardiac history necessitating hospitalization and close monitoring for potential myocardial ischemia or other serious cardiac events.
DIAGNOSIS
1. Chest pain, unspecified (R07.9)
2. Atrial fibrillation (I48.91)
3. Elevated levels of cardiac markers (R79.89)
Past History
Past History
ED Past Medical History: CAD, HTN, Hypercholesterolemia, NIDDM, CO and Other (Diverticulitis,)
ED Past Surgical History: Cardiac (Stents X4) and Orthopedic (Laminectomy, Left hip replacement, Left hand surgery)
Social History
Tobacco: Former smoker
Alcohol: Daily (Whisky 2-3 glasses)
Personal:
Living: alone
Phy Exam
Physical Exam
Physical Exam:
.
Scores
Heart Score for Chest Pain Patients
STEMI patient?: Not applicable
Course
Orders/Labs/Results
Orders:
Orders
12/06/24 20:58
Electrocardiogram (*1) Urgent
Reason for Study: Chest Pain
12/06/24 21:07
Complete Blood Count/With Diff Urgent
Comprehensive Metabolic Panel Urgent
Troponin I Urgent
12/06/24 22:15
Nitroglycerin Sublingual [Nitrostat (Sublingual)] 1.2 mg .ROUTE .STK-MED ONE
12/06/24 22:16
Nitroglycerin Sublingual [Nitrostat (Sublingual)] 1.2 mg SL NOW STA
12/06/24 22:34
Nitroglycerin Ointment [Nitro-Bid] 1 inch TOPICAL NOW STA
12/06/24 22:45
EKG [Electrocardiogram (*1)] Urgent
Reason for Study: Chest Pain
12/06/24 23:00
Flush (0.9% Sodium Chloride) [Flush (Nss)] See Dose Instructions IV PER PROTOCOL
12/06/24 23:29
Heparin 4,000 units IV NOW STA
Heparin Protocol- PTT Orders As Directed
PTT per Heparin protocol: -Obtain CBC and baseline PTT - if not already collected.
-Obtain PTT 6 hours from start of infusion. Then, every 6 hours until 2 consecutive
PTT's are therapeutic. Then, PTT Daily.
-With each rate change, obtain PTT every 6 hours until 2 consecutive PTT's are
therapeutic. Then, PTT Daily.
Notify MD As Directed
Notify physician if: PTT is greater than or equal to 200.
12/06/24 23:30
Heparin 96101 Units/250 ml 25,000 units in 250 ml IV PER PROTOCOL
Weight to be used for heparin protocol in kilograms (kg):: 118
Protocol:: Cardiac Tx/Acute Coronary
PTT Goal Range to be used:: PTT 73 to 111 seconds
Order type:: Initial
INITIAL Infusion Dose (UNITS/KG/hr) & then follow protocol:: 12 units/kg/hr
Infusion Dose in UNITS/hr & then follow protocol (UNITS/hr):: 1,000
INFUSION RATE in mL/hr & then follow protocol (mL/hr):: 10
PTT less than or equal to 64 seconds:: Increase rate by 200 units/hr (+ 2 mL/hr)
PTT 64.1 to 72.9 seconds:: Increase rate by 100 units/hr (+ 1 mL/hr)
PTT 73 to 111 seconds:: Target Range. No change in rate.
PTT 111.1 to 130.9 seconds:: Decrease rate by 100 units/hr (- 1 mL/hr)
PTT 131 to 199.9 seconds:: HOLD for 1 hr. Then decrease rate by 200 units/hr (- 2 mL/hr)
PTT greater than or equal to 200 seconds:: HOLD for 2 hrs & Notify Provider. Then decrease by 200 units/hr (-
2 mL/hr)
Lab follow-up:: Each change, PTT q6h until 2 consecutive are therapeutic. Then PTT
daily.
Nursing to Place Non Medication Order As Directed
Physician Order: DC Nitropaste
Above order entered?: Yes
12/06/24 23:31
Admit/Transfer Patient As Directed
Co-Sign Provider:
Level of Care: Inpatient admission
Assign to:: IVU
Physician / Group: dominik amor
Diagnosis: nstemi
Reason for Hospitalization: nstemi
Expected length of stay greater than two midnights?: Yes
ELOS- Estimated Length of Stay in days: 3
I certify the patient meets the requirements for IP care: Yes
12/06/24 23:32
Code Status As Directed
Resuscitation Status: Full Code
12/06/24 23:36
PRN Pain Medication Management As Directed
May give lesser potent ordered pain med per pt: Yes
preference::
Protocol:: Medication orders for pain may be administered in a
manner that supports deferring to patient preference
when the pt is:
- Requesting an ordered lesser potent pain medication.
Least to most potent pain medications are defined
as: acetaminophen < NSAID < tramadol < opioids
(morphine, oxycodone, hydromorphone).
- Requesting a lesser dose of the same medication IF
ORDERED.
- Requesting a less intrusive route of administration
if both routes are prescribed by the provider (PO <
IV).
12/06/24 23:38
CARDIOLOGY CONSULT Routine
Consulting Provider: Rubén Butts
Was physician already notified: No
Reason for consult: nstemi
Consult Notification Routine
Specialty to Notify: Cardiology
Date consulting provider notified: 12/07/24
Time consulting provider notified: 07:28
Notified:: Provider
12/06/24 23:45
Nitroglycerin 100 mg/250 ml [Nitroglycerin Premix] 100 mg in 250 ml IV PER PROTOCOL
Initial dose in mcg/min, then titrate:: 5
Titrate to keep:: SBP < 160 mmHg
Titrate by mcg/min:: 5 mcg/min, may increase by 10 mcg/min if dose > 20 mcg/min
Frequency of titrations (minutes):: every 3-5 minutes
Maximum dose in mcg/min:: 200
Begin to taper infusion when:: Remained at goal for 2hrs
Taper by mcg/min:: 5 mcg/min
Frequency of taper (minutes) if patient maintains goal:: 30
Taper to off?: Yes
If infusion off & no longer maintaining goal:: Contact Provider
12/06/24 23:50
Acetaminophen [Tylenol] 650 mg PO Q4HPRN PRN
Dextrose 50%-Water [Dextrose 50% Syringe] 12.5 grams IV Q91VCTA PRN
Glucagon [GlucaGen] 1 mg IM PRN PRN
12/06/24 23:50
Activity As Directed
Activity Level: As Tolerated
Bedside Glucose Monitoring As Directed
Frequency: AC&HS
Additional Instructions:: Change to q6h if pt on TPN, tube feeding or not eating
Vital Signs As Directed
Frequency: Per unit guidelines
12/06/24 23:53
Complete Blood Count/No Diff Urgent
Comment: Obtain baseline before beginning heparin infusion if not already collected
PTT Urgent
Comment: Obtain baseline before beginning heparin infusion if not already collected
12/07/24 05:01
Troponin I Urgent
12/07/24 06:00
EKG [Electrocardiogram (*1)] IN AM
Reason for Study: Chest Pain
NPO
Allow oral meds: Yes
Allow clear liquids: No
NPO with Ice Chips: No
12/07/24 06:11
Complete Blood Count/With Diff IN AM
Glycohemoglobin (HgbA1c) IN AM
12/07/24 07:30
Insulin Aspart Corrective Low [Novolog Flexpen-Low Resistance] See Protocol SC AC
12/07/24 08:00
Cholecalciferol (Vitamin D3) [VITAMIN D3 (cholecalciferol)] 25 mcg PO DAILY
Diltiazem Extended Release [Cardizem Cd] 180 mg PO DAILY
Lactobac/Bifidobac [Visbiome] 1 cap PO BID
Pantoprazole [Protonix] 40 mg PO DAILY
Thiamine HCl [Vitamin B1] 250 mg PO DAILY
12/07/24 18:00
Atorvastatin [Lipitor] 40 mg PO QPM
12/07/24 22:00
Finasteride [Proscar] 5 mg PO HS
Tamsulosin [Flomax] 0.8 mg PO HS
12/08/24 03:12
Complete Blood Count/With Diff IN AM
Comment: Notify MD if platelet count is <130,000 or decreases by 50% from baseline
Comprehensive Metabolic Panel IN AM
12/09/24 06:00
Complete Blood Count/With Diff IN AM
Comprehensive Metabolic Panel IN AM
12/10/24 06:00
Complete Blood Count/No Diff Q2D
Comment: Notify MD if platelet count is <130,000 or decreases by 50% from baseline
12/12/24 06:00
Complete Blood Count/No Diff Q2D
Comment: Notify MD if platelet count is <130,000 or decreases by 50% from baseline
12/14/24 06:00
Complete Blood Count/No Diff Q2D
Comment: Notify MD if platelet count is <130,000 or decreases by 50% from baseline
12/16/24 06:00
Complete Blood Count/No Diff Q2D
Comment: Notify MD if platelet count is <130,000 or decreases by 50% from baseline
12/18/24 06:00
Complete Blood Count/No Diff Q2D
Comment: Notify MD if platelet count is <130,000 or decreases by 50% from baseline
12/20/24 06:00
Complete Blood Count/No Diff Q2D
Comment: Notify MD if platelet count is <130,000 or decreases by 50% from baseline
12/22/24 06:00
Complete Blood Count/No Diff Q2D
Comment: Notify MD if platelet count is <130,000 or decreases by 50% from baseline
Abnormal Lab Results
12/06/24
21:07
RBC 4.69 L 10^6/uL
(4.70-6.10)
MCV 96.6 H fL
(80.0-94.0)
MCH 34.8 H pg
(27.0-31.0)
MPV 10.5 H fL
(7.4-10.4)
Absolute Neuts (auto) 7.1 H 10^3/uL
(1.4-6.5)
Absolute Lymphs (auto) 1.1 L 10^3/uL
(1.2-3.4)
Absolute Monos (auto) 0.8 H 10^3/uL
(0.1-0.6)
Neutrophils % 75.9 H %
(42.2-75.2)
Lymphocytes % 12.2 L %
(20.5-51.1)
Carbon Dioxide 18 L mmol/L
(22-30)
Glucose 160 H mg/dl
(70-99)
Troponin I 0.089 H* ng/ml
12/06/24 21:07
12/06/24 21:07
Vital Signs
Initial and Last Documented VS:
Initial Vital Signs
Temp Pulse Resp BP Pulse Ox
97.4 F 98 18 181/117 98
12/06/24 20:53 12/06/24 20:53 12/06/24 20:53 12/06/24 20:53 12/06/24 20:53
Last Documented Vital Signs
Temp Pulse Resp BP Pulse Ox
98.0 F 76 20 137/82 96
12/08/24 21:57 12/08/24 22:27 12/08/24 21:57 12/08/24 22:27 12/08/24 21:57
*Pulse Oximetry
SaO2: 96
Oxygen Mode of Delivery: Room air
Patient hypoxic: no
*Vacuum Closing Machine Operator Interpretation
Rate: tachycardiac
Interpretation: abnormal
Heart Rate: 106
Rhythm: a-fib
*Critical Care Note
Total Time (30-74mins, 75-104mins- exclusive of procedures): Not Applicable
ED Attending Note
-
Portions of this chart may have been created with voice recognition software.� Occasional wrong word or��sound alike� substitutions may have occurred due to the inherent limitations of voice recognition software.
Discharge Plan
Departure
Patient Disposition: Admit
Date of Disposition: 12/06/24
Time of Disposition: 22:43
Admit to: Telemetry
Presentation/result/management discussed w/ accepting MD/DO: Hospitalist
Condition: Fair
Discharge Problem:
Chest pain, A-fib
Interventions
Interventions:
*General Assessment Last Done: 12/06/24 20:53
*Neglect/Abuse Screening Last Done: 12/06/24 20:53
*ED- Fall Risk Assessment Last Done: 12/07/24 04:59
*Nursing Disposition Last Done: 12/07/24 07:01
ED- Cardiac Assessment Last Done: 12/06/24 22:32
Discharge Date and Time
Discharge Date/Time: 12/07/24 07:29
--- NOTE | 2024-12-06 22:48 | W.PN.UPDATE ---
Update Note
Progress Note Update
Patient seen in conjunction with BUSINESS RISK CONSULTANT. I agree with the findings in history and physical. I concur with assessment plan unless stated otherwise.
Briefly, this is a 84-year-old with past medical history significant for CAD with NSTEMI status post prior cath, atrial fibrillation on anticoagulation, has preserved EF, hypertension and BPH and apc-mwtzver-nksczeghw diabetes presenting to the
emergency department with acute episode of chest pain that started at around 5:30 PM. Reports was 6 out of 10 chest pain radiating down the left arm. He did take baby aspirin prior to coming to the emergency department. Denies associated dyspnea
at rest.
History indicated recent cardiac testing with stress test and echocardiogram in October. Perfusion imaging reveals a small area of mildly decreased perfusion that is reversible in the mid anteroseptal wall. Differential diagnosis includes
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 Functional imaging shows septal motion consistent with LBBB. ECG at that time also indicated left bundle.
He endorsed forgetfullness with medications and has not taken his apixaban today.
On arrival in the emergency department blood pressure was initially 140s over 110s, pulse rate 101 he was afebrile and satting 96% on room air. ECG shows atrial fibrillation at a rate of 103 with left bundle branch block and no acute ST or T wave
changes. There is some peaking T waves compared to prior ECG from last year. Troponin was elevated at 0.089. CBC was unremarkable. Electrolytes BUN/creatinine were all in the normal range. Repeat ECG with clear T wave inversions in the inferior
leads.
Assessment and plan
NSTEMI - Patient with a history of CAD status post PCI, hypertension, diabetes presenting with chest pain with dynamic T wave changes in the inferior leads on ECG. Initial troponin 0.089. Patient is anticoagulated on Eliquis at home. Recent
stress test with likely reversible ischemia and patient remains non-compliant fully with CAD regimen and anticoagulation. Last stent 15 yrsa go.
- Admit to IVU
- start heparin acs protocol without bolus
- Nitroglycerin gtt titrated to chest pain free
- Continue aspirin and statin for now
- echo
- Consult to cardiology
AFIB
- continue his diltiazem
- on heparin for now
DMII
- npo after midnight
- sliding scale insulin
HTN
- management with lisinopril
Continue rest of plan as per patient's home medications
DVT prophylaxis�on heparin
CODE STATUS�full code
--- NOTE | 2024-12-06 22:53 | HPS.HSE ---
Family Physician
-
Family Physician:
Chief Complaint
-
Left axilla to left breast pain
History of Present Illness
84-year-old male complaining of chest pain that began at 3 PM today left axilla to left breast persistent. At 1 point he states it was 6 out of 10 he did have episode of diaphoresis this evening before coming to the ER. He reports current chest
pain 1 out of 10. He had Nitropaste 1 inch applied to chest wall during my exam. He denies fever, chills, palpitations, cough, shortness of breath, abdominal pain, nausea, vomiting, diarrhea, urinary symptoms. He reports he often forgets to take
his medication in the a.m. and p.m. as he keeps it in the kitchen I suggested moving it to his nightstand but he states he does not he does not have water or bring drinks up there. He believes he might of taken his Eliquis yesterday evening
12/05/2024 but is not sure.
The patient has past medical history of CAD, UT, multiple stents, angina, LBBB Dx October 2024, cardiomyopathy EF 47% October 2024, paroxysmal A-fib, HTN, DM 2, polymyalgia rheumatica, daily alcohol 1 drink whiskey
Medical History
Past Medical History
Past Medical History: Reports Other
Additional Past Medical History:
CAD/UT, multiple stents x4 10 to 15 years ago
angina
LBBB Dx October 2024
cardiomyopathy EF 47% October 2024
Paroxysmal A-fib
HTN
DM 2
polymyalgia rheumatica
Ex-smoker
Past Surgical History: Reports Other
Additional Past Surgical History:
Cardiac stents x 4
Bilateral CTR 2006
Left total hip replacement 2000
Cardiac cath 07/2007, 03/08/2008
Left shoulder surgery 2009
Social History
Tobacco: Non-smoker
Alcohol: Daily (Drinks nightly whiskey 1 glass)
Personal: Single
Living: Alone
Employment: Retired
Family History
Family History: Not pertinent
Allergies / Home Medications
Allergies reflects when Allergies were last updated in [facility].
Home Medications with original date entered in [facility]
Allergy/Medication List:
Allergies
Allergy/AdvReac Type Severity Reaction Status Date / Time
bee venom protein (honey bee) Allergy Pt denies Verified 09/21/24 09:43
mold Allergy Sneezing Verified 09/21/24 09:43
pollen extracts Allergy sneezing Verified 09/21/24 09:43
sulfasalazine (From Allergy Unknown Verified 09/21/24 09:43
Azulfidine EN-tabs)
Home Medications
tamsulosin 0.4 mg capsule 0.8 mg PO HS 06/06/14
cholecalciferol (vitamin D3) 25 mcg (1,000 unit) capsule (Vitamin D3) 1,000 unit PO DAILY 06/06/17
diltiazem HCl 180 mg capsule,extended release 24 hr 180 mg PO DAILY 06/06/17
lisinopril 20 mg tablet 20 mg PO DAILY 06/06/17
nitroglycerin 0.4 mg sublingual tablet 0.4 mg sublingual [id number] PRN chest pain #25 tabs 05/19/18
pantoprazole 40 mg tablet,delayed release (Protonix) 40 mg PO DAILY ##0 05/19/18
isosorbide mononitrate 30 mg tablet,extended release 24 hr 30 mg PO DAILY 07/27/23
metformin 500 mg tablet 500 mg PO BID 07/27/23
glimepiride 1 mg tablet 1 mg PO BID Diabetes #60 tabs 08/16/23
thiamine HCl (vitamin B1) 250 mg tablet 250 mg PO DAILY #1 tab 08/16/23
apixaban 5 mg tablet (Eliquis) 5 mg PO BID afibb/blood clot prevent 09/21/24
Ambien 10 mg PO HS 12/06/24
Probiotic 1 cap PO BID 12/06/24
Tylenol 1,000 mg PO Q6HPRN PRN mild pain 12/06/24
atorvastatin 20 mg tablet 40 mg PO QPM 12/06/24
finasteride 5 mg tablet 5 mg PO HS 12/06/24
Review of Systems
-
History Source: Patient
A 12 point ROS was completed and negative except as noted: Yes
Constitutional: Denies Fever or Chills
EENT: Denies Sore Throat
Respiratory: Denies Cough or Trouble Breathing
Cardiac: Reports Chest Pain (Left axilla to left breast area) and Diaphoresis; Denies Palpitations or Syncope
Abdomen/GI: Denies Abdominal Pain, Nausea, Vomiting or Diarrhea
: Denies Dysuria, Frequency, Flank Pain, Incontinence, Difficulty Voiding or Urgency
Musculoskeletal: Denies Joint Pain or Joint Swelling
Skin: Denies Itching or Rash
Neurological: Denies Dizzy or Headache
Endocrine: Reports No Symptoms
Hematologic/Lymphatic: Reports No Symptoms
Psych: Reports Calm
Physical Exam
Vital Signs
Vital Signs
Temp Pulse Resp BP Pulse Ox
97.4 F 101 19 143/119 96
12/06/24 20:53 12/06/24 22:30 12/06/24 22:30 12/06/24 22:26 12/06/24 22:44
Physical Exam
General: Conversant and Pain; No Fever or Chills
HEENT: NormoCephalic, Anicteric, Moist mucous membranes, PERRLA, [facility] Conjunctivae, No Ptosis and Hearing Impaired
Respiratory: Clear; No Wheezes, Rales or Rhonchi
Cardiac: S1/S2 and Irregular Rhythm (A-fib with LBBB); No Murmur, Rub, Gallop or Peripheral Edema
Breast: Deferred by me
GI: Soft, Non Tender, Non Distended, Normal Bowel Sounds and No Hepatosplenomegaly
Rectal: Deferred by Provider
Genito-urinary: Deferred by me
Musculoskeletal: No Clubbing, No Cyanosis and No Edema
Skin: Warm and Dry; No Rash
Neuro: AO x 3, No Motor Deficits, Cranial Nerves Intact, No Sensory Deficits and Other (Hard of hearing); No Slurred Speech, Facial Droop or Tremors
Psych: Calm
Laboratory Results
-
12/06/24 21:07
12/06/24 21:07
Laboratory Results
Total Bilirubin 0.9 mg/dl (0.2-1.3) 12/06/24 21:07
AST 28 U/L (17-59) 12/06/24 21:07
ALT 20 U/L (0-50) 12/06/24 21:07
Alkaline Phosphatase 104 U/L (38-126) 12/06/24 21:07
Troponin I 0.089 ng/ml H* 12/06/24 21:07
Data Reviewed
-
Lab Data: Labs Reviewed by me
Impression/Plan
-
Impression/plan:
Admit to IVU
#NSTEMI
#CAD/UT multiple for patient
#History angina
#History LBBB October 2024
Active chest pain 1 out of 10
Troponin 0.089 will repeat at midnight then 5 AM
Patient has not taken Eliquis since he thinks yesterday he misses doses many times
-Will start IV heparin drip with bolus
-IV nitro to chest pain-free
Hold Imdur, metformin, glimepiride
-Consult [facility] cardiology
EKG A-fib with RVR 103 bpm, T wave inversions
Myocardial perfusion imaging 11/02/2024:
Small reversible perfusion defect in the mid anteroseptal wall. Most likely artifact from LBBB. Small area of ischemia cannot be excluded.
Inconclusive ECG for ischemia given the pharmacological study and LBBB.
Systolic function is mildly reduced. The ejection fraction is 47%.
Stress Risk is moderate risk study (1 - 3% UT or /year) due to pharmacologic agent used.
#Paroxysmal A-fib
Patient believes he took Eliquis last yesterday 12/05/2024 in PM but is not sure as he misses his medications a lot of the times
Patient will be on IV heparin drip due to NSTEMI
#HTN
- BP stable
Patient on current nitro drip
Continue diltiazem 180 mg daily with hold parameters
Hold lisinopril
#DM 2
Accu-Cheks with SSI, check HgbA1c
Hold metformin, glimepiride
#BPH
Continue Flomax with hold parameters, continue finasteride
#Daily alcohol
Drinks 1 glass of whiskey daily
Continue thiamine daily
#Polymyalgia rheumatica
No reported meds
#Lumbar disc repair June 2017
DVT prophylaxis
IV heparin drip
Full code
[2024-12-06] MEDS: NITRO-BID 1 INCH TOPICAL (22:57)
[2024-12-06 23:26] VITALS: BP 133/95
[2024-12-06 23:29] VITALS: BP 133/95
[2024-12-06] MEDS: HEPARIN 4000 UNITS IV (23:59)
[2024-12-07] VITALS (27 sets, daily range): BP systolic 116–191; BP diastolic 79–122; BMI 33.4
[2024-12-07 00:02] LABS: Hematocrit 41.1 % (39.0-52.0); Hemoglobin 14.8 g/dL (13.0-18.0); Mean Corp Hgb Conc. 36.0 g/dL (33.0-37.0); Mean Corpuscular Volume 96.5 fL (80.0-94.0); Platelet Count 179 10^3/uL (130-400); Red Cell Dist. Width 12.4 % (11.5-14.5)
[2024-12-07] MEDS: HEPARIN 25000 UNITS/250 ML IV (00:03)
[2024-12-07 00:11] LABS: APTT 30.2 Sec (23.4-35.0)
[2024-12-07 05:59] LABS: Troponin I 4.940 ng/ml
[2024-12-07 06:19] LABS: Hematocrit 42.3 % (39.0-52.0); Hemoglobin 15.1 g/dL (13.0-18.0); Mean Corp Hgb Conc. 35.7 g/dL (33.0-37.0); Mean Corpuscular Volume 96.1 fL (80.0-94.0); Nucleated Red Blood Cells % 0 % (-); Platelet Count 190 10^3/uL (130-400); Red Cell Dist. Width 12.2 % (11.5-14.5)
[2024-12-07 06:32] LABS: APTT 80.3 Sec (23.4-35.0)
[2024-12-07 07:09] LABS: Glycohemoglobin (HgbA1c) 6.1 % (4.0-5.6)
[2024-12-07] MEDS: CARDIZEM CD 180 MG PO (07:44)
[2024-12-07] MEDS: VITAMIN B1 250 MG PO (07:45)
[2024-12-07] MEDS: PROTONIX 40 MG PO (07:45)
[2024-12-07] MEDS: VITAMIN D3 (cholecalciferol) 25 MCG PO (07:45)
[2024-12-07] MEDS: VISBIOME 1 CAP PO ×2 (07:46→19:44)
--- NOTE | 2024-12-07 07:50 | PTCARENOTE ---
Addendum entered by Enrico Overton RN 12/07/24 09:42:
Significant BP difference in L and R arm. Primary team and cardiology made aware.
Cardiology bedside, Nitro gtt changed to SBP >160. Send troponin early, give PO BP meds, and add nitro if parameters met.
Remains chest pain free.
Original Note:
Rec'd pt. from ED.
Hypertensive, 190/112s in multiple limbs. --> attending notified, orders to restart home BP meds.
Remains chest pain free, sinus tach w.o ectopy, heparin gtt infusing.
Plan of care explained to patient, all questions answered.
--- NOTE | 2024-12-07 09:03 | CON.CAR ---
Addendum entered and electronically signed by Rubén Butts MD 12/07/24 09:52:
I saw and evaluated the patient, and I provided the substantive portion of the medical decision making.
I reviewed and agree with the note by PAUL and it accurately reflects our care.
I personally performed the medical decision making of the this encounter and my assessment and plan is below:
84-year-old man with CAD (RCA PCI 2007, occlusion of OM branch), permanent AF on Eliquis, hypertension, LBBB who presents with chest pain. He reports that chest pain occurred at 5:30 PM while sitting down. It started in his left axillary region
and radiated towards his mid sternum. No associated symptoms. He presented to the ER and chest pain has not recurred since last night. Nitro helped. At the time of my interview, he is chest pain-free.
Physical exam: Irregular rate and rhythm, no murmurs, clear lungs bilaterally, trace lower extremity edema
I personally reviewed his ECG which shows atrial fibrillation with stable left bundle branch block, no STEMI by Sgarbossa's criteria
Labs are notable for creatinine 0.9, troponin 0.089 --> 4.94
NSTEMI: Most likely type I but could be hypertensive emergency. No emergent indication for catheterization. He is currently chest pain-free. We will get an echocardiogram now to look for regional wall motion abnormalities and see what his next
troponin shows. Continue heparin and ASA. He took 4 baby aspirin yesterday. Nitro for any recurrent chest pain. Beta blockers have caused dizziness in the past. Will reassess for need based on echo.
Hypertensive urgency/emergency: Elevated troponin as above. Currently chest pain-free. Resume home antihypertensives (diltiazem 180, lisinopril 20, Imdur 30). If no improvement in BP within 1 hour, restart nitro drip for goal SBP <160.
Permanent A-fib: Rate control with diltiazem. He missed Eliquis last night. Hold for now while we are deciding on cath. He is on heparin.
Original Note:
Consultation
Consultation Request
Date/Time Consultation Requested: 12/06/24 11:38p
Date/Time Consultation Performed: 12/06/24 8:30a
Requesting Provider: PAUL Guthrie
Performing Provider: PAUL Gaffney for Dr. Butts
Reason for Consultation: chest pain/Afib
Medical History
-
Chief Complaint: chest pain
History of Present Illness:
Mr. Mccloud is an 84 yo male with CAD (RCA PCI 2007, occlusion of OM branch), permanent Afib on Eliquis, HTN, LBBB, HLD, DM and PMR, who presents to the ER with c/o chest pain last night at 5:30p while sitting. EKG in the ER showed Afib with LBBB 81
bpm, initial troponin 0.089 then second troponin 4.940. He was also hypertensive on arrival 181/117. His chest pain improved with SL NTG and he is admitted to the hospitalist service. We are consulted for chest pain. Currently he is chest pain
free, but admits to mild tenderness of left chest area with palpation.
Past Medical History
Past Medical History: Other (as above)
Past Surgical History: Orthopedic (left shoulder, right DERICK)
Social History
Tobacco: Former Smoker
Alcohol: Daily
Family History
Family History: Reviewed & Not Pertinent
Allergies / Home Medications
Allergy/AdvReac Type Severity Reaction Status Date / Time
bee venom protein (honey bee) Allergy Pt denies Verified 09/21/24 09:43
mold Allergy Sneezing Verified 09/21/24 09:43
pollen extracts Allergy sneezing Verified 09/21/24 09:43
sulfasalazine (From Allergy Unknown Verified 09/21/24 09:43
Azulfidine EN-tabs)
�Medication �Instructions �Recorded �Confirmed �Type
tamsulosin 0.4 mg capsule 0.8 mg PO HS Urinary Issue 06/06/14 12/06/24 History
cholecalciferol (vitamin D3) 25 1,000 unit PO DAILY Supplement 06/06/17 12/06/24 History
mcg (1,000 unit) capsule (Vitamin
D3)
diltiazem HCl 180 mg 180 mg PO DAILY Arrhythmia 06/06/17 12/06/24 History
capsule,extended release 24 hr
lisinopril 20 mg tablet 20 mg PO DAILY Blood Pressure 06/06/17 12/06/24 History
nitroglycerin 0.4 mg sublingual 0.4 mg sublingual [id number] PRN 05/19/18 12/06/24 Rx
tablet chest pain #25 tabs
pantoprazole 40 mg tablet,delayed 40 mg PO DAILY Gastrointestinal 05/19/18 12/06/24 History
release (Protonix) Issue ##0
isosorbide mononitrate 30 mg 30 mg PO DAILY Heart 07/27/23 12/06/24 History
tablet,extended release 24 hr Disease/Condition
metformin 500 mg tablet 500 mg PO BID Diabetes 07/27/23 12/06/24 History
glimepiride 1 mg tablet 1 mg PO BID Diabetes #60 tabs 08/16/23 12/06/24 Rx
thiamine HCl (vitamin B1) 250 mg 250 mg PO DAILY #1 tab 08/16/23 12/06/24 Rx
tablet
apixaban 5 mg tablet (Eliquis) 5 mg PO BID afib/blood clot prevent 09/21/24 12/06/24 History
Ambien 10 mg PO HS Sleep 12/06/24 12/06/24 History
Probiotic 1 cap PO BID Gastrointestinal Issue 12/06/24 12/06/24 History
Tylenol 1,000 mg PO Q6HPRN PRN mild pain 12/06/24 12/06/24 History
atorvastatin 20 mg tablet 40 mg PO QPM High Cholesterol 12/06/24 12/06/24 History
finasteride 5 mg tablet 5 mg PO HS Urinary Issue 12/06/24 12/06/24 History
Review of Systems
-
History Source: Patient
All other systems: Negative unless noted
Physical Exam
Vital Signs
Temp Pulse Resp BP Pulse Ox
97.4 F 96 13 191/115 97
12/06/24 20:53 12/07/24 07:44 12/07/24 06:45 12/07/24 07:44 12/07/24 08:36
Lab Results
12/07/24 06:11
Troponin I 4.940 ng/ml H* D 12/07/24 05:01
Physical Exam
General: Well Developed, Well Nourished and No Apparent Distress
HEENT: Normocephalic and Anicteric
Respiratory: Clear and Non Labored Respirations
Cardiac: S1/S2 and Irregular Rhythm
Breast: Deferred by me
GI: Soft, Non Tender and Normal Bowel Sounds
Rectal: Deferred by Provider
Genito-urinary: Clear Urine
Musculoskeletal: No Clubbing, No Cyanosis and No Edema
Skin: Warm and Dry
Neuro: AO x 3
Psych: Calm
Impression / Plan
-
Chest pain/NSTEMI - initial troponin 0.089 then 4.940.
- now chest pain free.
- EKG with Afib LBBB 81bpm.
- recent Lexiscan nuclear stress test 11/02/24: EF 47%, small area of mildly decreased perfusion that is reversible in the mid anteroseptal wall, likely artifact from LBBB.
- plan for [facility] today, patient is agreeable.
HTN emergency - on arrival to ER.
- BP continues to be elevated.
- will start NTG gtt for sbp < 160mmHg.
- ordered Lisinopril 20mg daily, at home dose.
- question about medication compliance at home.
- could be cause for elevated troponin.
Afib - permanent.
- rate controlled and asymptomatic.
- continue Cardizem.
- he is on Eliquis 5mg BID but admits to forgetting doses, last dose was Tuesday night, he can't remember if he took it yesterday am.
HLD - on Lipitor 20mg with LDL 83 in 06/2024.
- Lipitor was increased to 80mg daily at 11/13/24 office visit.
- goal LDL < 55.
LBBB - chronic, stable.
Data Reviewed
-
EKG: Tracing Personally Visualized and interpreted
Radiology: Report Reviewed by me
Medical Tests (Nuc Med, Echo etc): Report Reviewed by me (Lexiscan nuclear stress test 11/02/24: EF 47%, small area of mildly decreased perfusion that is reversible in the mid anteroseptal wall, likely artifact from LBBB.)
Labs: Labs Reviewed by me
Old Records: Reviewed
[2024-12-07] MEDS: ZESTRIL 20 MG PO (09:18)
[2024-12-07] MEDS: IMDUR (EXTENDED RELEASE) 30 MG PO (09:18)
--- NOTE | 2024-12-07 10:12 | CARDSERVLU ---
Echocardiogram with [facility] completed after protocol screening completed. Allergies verified.
Patent IV site: __Left antecubital site clear___
IV site flushed with 0.9% NaCl pre and post administration.
Diluted bolus method utilized to enhance visualization of ventricular gonzáles.
Total volume given: _4___ mL
Patient tolerated all procedures well without complications.
[2024-12-07 10:20] LABS: Troponin I 6.750 ng/ml
[2024-12-07 10:33] LABS: ALT (SGPT) 26 U/L (0-50); AST (SGOT) 121 U/L (17-59); Albumin 4.3 g/dl (3.5-5.0); Alkaline Phosphatase 113 U/L (38-126); Blood Urea Nitrogen 20 mg/dl (9-20); Calcium 9.2 mg/dl (8.4-10.2); Carbon Dioxide 21 mmol/L (22-30); Chloride 107 mmol/L (98-107); Estimated Creatinine Clearance 82 ml/min; Glucose 147 mg/dl (70-99); HDL Cholesterol 54 mg/dl; LDL Cholesterol, Calculated 71 mg/dl; Magnesium 1.7 mg/dl (1.6-2.3); Potassium 4.0 mmol/L (3.5-5.1); Sodium 138 mmol/L (135-145); Total Protein 6.7 g/dl (6.3-8.2); Very Low Density Lipoprotein 30 mg/dl (0-30); eGFR > 60.00
--- NOTE | 2024-12-07 11:20 | CM ---
Initial assessment completed with patient who lives alone in a 2 story home plus basement w B/B on 2nd and 1/2 bath on 1st, 2 steps to enter. DOCUMENTATION SPEC patient was independent in ADL's and ambulation with no AD, drives. In the home is a RW and SPC. Does
have HC-POA. No VA benefits. No psychiatric hospitalizations. PCP is Dr. Louis Serrano. [facility]acy [facility]. Discharge POC: Anticipate home with no needs.
[2024-12-07] MEDS: LOW STRENGTH ASPIRIN 81 MG PO (11:21)
[2024-12-07 11:42] LABS: Glucose - Point of Care 132 mg/dl (70-99)
[2024-12-07 11:55] LABS: APTT 40.4 Sec (23.4-35.0)
--- NOTE | 2024-12-07 12:31 | W.PN.HOSP.TC ---
Today's Communication/Plan
-
Assessment / Plan
Assessment / Plan
General: No Apparent Distress, Comfortable and Conversant
HEENT: NormoCephalic, Moist mucous membranes, Atraumatic
Respiratory: Clear and Non Labored Respirations
Cardiac: S1/S2 and Regular Rhythm; No Rub or Gallop
GI: Soft, Non Tender, Non Distended and Normal Bowel Sounds
Musculoskeletal: No Edema, no deformity
Skin: Warm and dry
: NO Moore
Neuro: Awake, Alert, Nonfocal/grossly intact
Psych: Calm and Intact Judgment/Insight
Mr. Mccloud is an 84-year-old male with a medical history of CAD ([place] with stents x 4), LBBB, permanent A-fib, hypertension, PMR, and NIDDM who presented with left chest pain at rest and diaphoresis. His blood pressure was initially uncontrolled with
a BP reading of 181/117 in the ED. He was found to be in A-fib with RVR heart rate around 100. Labs were significant for a troponin of 0.08 initially which rapidly increased to 4.9 on repeat. He was started on IV heparin drip and sublingual nitro
with improvement in his chest pain. He has been admitted for further evaluation and management. Of note patient reports sometimes forgetting to take some of his medications.
NSTEMI:
- Troponin still rising, last was 6.7, will trend through peak
- Continue IV heparin drip
- Echocardiogram shows newly reduced ejection fraction of 30 to 35% with inferior and possibly septal wall hypokinesis
- Cardiology following, tentatively planning for coronary angiography today
- Chest pain-free currently
- Continue low-dose aspirin and high intensity statin
Acute HFrEF:
- Echo this admission showing newly reduced ejection fraction of 30 to 35% with inferior and possibly septal wall hypokinesis
- Possibly ischemic, cardiology tentatively planning coronary angiography today
- Continue blood pressure control with home Imdur and lisinopril, titratable nitro drip if needed
- Patient has poorly tolerated beta-blockers in the past, will follow-up with cardiology regarding further recommendations
Hypertension:
- Uncontrolled at time of admission, now better controlled with continuation of home medications
- Continue home lisinopril 20 mg daily and isosorbide mononitrate 30 mg daily
- Titratable nitro drip has been added as needed for blood pressure control
Permanent A-fib:
- Heart rate now better controlled
- Continue home diltiazem 180 mg p.o. daily holding home Eliquis while on IV heparin drip for NSTEMI
- Continue telemetry monitoring
- Encourage medication adherence
NIDDM:
- Takes metformin 500 mg p.o. twice daily and glimepiride 1 mg p.o. twice daily at home
- Will treat with sliding scale insulin for now while inpatient
- Hemoglobin A1c well-controlled at 6.1%
Daily alcohol use:
- Reports 1 drink of whiskey daily
- AST elevated at 121 within normal ALT, T. bili slightly elevated at 1.6
- Will monitor LFTs
- Continue thiamine
- Encourage alcohol cessation
Enlarged prostate:
- Continue home tamsulosin and finasteride
- Monitor for urinary retention
- Renal function currently within normal limits
GERD:
- Continue home pantoprazole 40 mg p.o. daily
DVT prophylaxis: IV heparin
CODE STATUS: Full code
Total time spent on today's encounter was 56 minutes
Anticipated Discharge: > 48 hours
Subjective/Interval History
-
Date of Service: December 07, 2024
Patient was seen and examined at bedside this morning. Currently comfortable. Blood pressure uncontrolled.
Objective Data
-
Labs:
Laboratory Results
12/07/24 12/07/24 12/07/24
06:11 09:16 11:33
WBC 8.2
Hgb 15.1
Hct 42.3
Plt Count 190
APTT 80.3 H 40.4 H
Sodium Cancelled 138
Potassium Cancelled 4.0
Chloride Cancelled 107
Carbon Dioxide Cancelled 21 L
BUN Cancelled 20
Creatinine Cancelled 0.9
Glucose Cancelled 147 H
Calcium Cancelled 9.2
Total Bilirubin Cancelled 1.6 H
AST Cancelled 121 H
ALT Cancelled 26
Alkaline Phosphatase Cancelled 113
Vital Signs:
Vital Signs
Temp Pulse Resp BP Pulse Ox
98 F 70 22 144/79 97
12/07/24 09:34 12/07/24 11:22 12/07/24 11:00 12/07/24 11:22 12/07/24 08:36
I&O
12/06/24 12/07/24 12/08/24
06:59 06:59 06:59
Intake Total 110 / 110
Output Total 600 / 600
Balance -600 / -600 110 / 110
Review of Systems
-
History Source: Patient
All other systems: Reviewed and negative
Physical Exam
-
General: No Apparent Distress
[2024-12-07 16:58] LABS: Glucose - Point of Care 129 mg/dl (70-99)
--- NOTE | 2024-12-07 17:14 | PTCARENOTE ---
Report given to laborer steel handling,
Plan of care explained to patient, all questions answered.
[2024-12-07 17:18] LABS: Troponin I 19.700 ng/ml
[2024-12-07 18:32] LABS: ACT-LR - POC 268 Seconds (116-155)
[2024-12-07 18:54] LABS: ACT-LR - POC 300 Seconds (116-155)
--- NOTE | 2024-12-07 19:30 | PTCARENOTE ---
Received pt. back from label folder. Pt. awake, alert, and oriented. Denies pain/discomfort. Afebrile. Heart rhythm Afib (known). TR band on right radial artery. Site intact. No bleeding/bruising noted. Currently on room air. Lungs sound diminished. PO
diet is ordered. No GI issues noted. Voiding in urinal without issue. Skin as documented. Discussed plan of care with patient. Vital signs stable at this time.
[2024-12-07] MEDS: LIPITOR 40 MG PO (19:44)
--- NOTE | 2024-12-07 19:58 | ITS.CL.PN ---
Addendum entered and electronically signed by Rodrigo Venegas MD 12/07/24 20:52:
CORRECTION:
RECOMMENDATIONS
1. Triple therapy for 1 week with Eliquis, Plavix, and aspirin followed by Eliquis and Plavix for 6 months.
Original Note:
Hand Paint Mixer - Procedure Note
Procedure
Procedure Note:
CARDIAC CATHETERIZATION REPORT
Date of Procedure: 12/07/2024
Referring: Dr. Damian Patton MD
Indication: NSTEMI
PROCEDURE(S)
1. left heart catheterization
2. coronary angiography
3. IVUS RCA
4. PCI with AAKASH to RCA
ACCESS: 6F right radial artery (closure: radial band)
CATHETERS
1. 6F JR4
2. 6F JL4
3. 6F JR4 guide
MODERATE SEDATION: 45 minutes of moderate sedation was utilized. An independent medical geneticist was present to assist with and help manage the patient's level of consciousness and physiologic status.
HEMODYNAMIC DATA
LV 165/21 (EDP 27) mmHg
AO 164/92 (mean 129) mmHg
CORONARY ANGIOGRAPHY
Dominance: Right
LM: Large vessel with mild distal tapering.
LAD: Large vessel giving rise to a small D1 and large branching D2. There is diffuse mild disease only
LCx: Moderate caliber vessel giving rise to two small OM branches and two small RPL branches. There is a total occlusion of the inferior branch of the first OM with left to left collaterals (last seen patent in 2007 and occluded on 2019
angiography). There is otherwise mild diffuse disease.
RCA: Large vessel giving rise to a moderate caliber RPDA and small RPL branch. There is a long stented segment in the distal RCA. There is a 30% stenosis in the proximal RCA, 90% culprit stenosis in the mid RCA, focal up to 80% stenosis at the
proximal stent edge, and diffuse moderate ISR in the proximal half of the stented segment. The segment with diffuse ISR is a double layer.
PCI with AAKASH to RCA
Heparin was given to achieve ACT greater than 300. The vessel was engaged with a JR4 guide catheter and a Runthrough wire was placed in the distal RCA. Initial lesion preparation was performed with serial inflation of a 2.0 mm semicompliant balloon
followed by further vessel preparation with serial inflation of a 3.0 mm NC balloon with full expansion. The vessel was stented with overlapping 3.0 x 38 and 3.0 x 26 mm [place] drug-eluting stents followed by IVUS demonstrating proximal
reference vessel diameter of 3.5 mm. Postdilation was then performed with a 3.5 mm NC balloon to high-pressure. Final angiographic result was excellent. Final IVUS demonstrated full stent expansion and apposition with no proximal stent edge
dissection. The wire and guide were removed and a TR band placed. The patient was loaded with 600 mg of Plavix.
RADIATION: dose 1171 mGy; DAP 71 Gy*cm2; fluoroscopy time 12.7 min
CONCLUSIONS
1. Single-vessel obstructive coronary artery disease as described.
2. Moderately elevated LV filling pressure in the setting of systemic hypertension and no aortic stenosis
3. Successful IVUS guided PCI with AAKASH to RCA (overlapping 3.0 x 38 and 3.0 x 26 mm [place] drug-eluting stents postdilated to high-pressure with a 3.5 mm NC balloon)
RECOMMENDATIONS
1. Triple therapy for 1 week with Xarelto, Plavix, and aspirin followed by Xarelto and Plavix for 6 months.
2. Aggressive secondary prevention of coronary artery disease with high intensity statin. If high intensity statin not tolerated were unable to achieve LDL less than 55, recommended addition of PCSK9 inhibitor.
Copy to: Dr. Steve Joseph MD (horticulture superintendent); Dr. Louis Serrano MD (PCP)
Signed: Rodrigo Venegas MD, PhD
[2024-12-07 20:41] LABS: APTT > 200 Sec (23.4-35.0)
[2024-12-07 20:53] LABS: Troponin I 29.700 ng/ml
[2024-12-07] MEDS: PROSCAR 5 MG PO (22:07)
[2024-12-07] MEDS: FLOMAX 0.8 MG PO (22:07)
[2024-12-08] VITALS (18 sets, daily range): BP systolic 125–168; BP diastolic 73–105; BMI 33.3
--- NOTE | 2024-12-08 00:05 | PTCARENOTE ---
Pt. assessment unchanged. TR band off per order. Radial site looks good. No hematoma or bleeding noted. Pt. denies pain/discomfort. Vital signs stable at this time.
[2024-12-08 03:23] LABS: Hematocrit 40.9 % (39.0-52.0); Hemoglobin 14.5 g/dL (13.0-18.0); Mean Corp Hgb Conc. 35.5 g/dL (33.0-37.0); Mean Corpuscular Volume 98.3 fL (80.0-94.0); Nucleated Red Blood Cells % 0 % (-); Platelet Count 168 10^3/uL (130-400); Red Cell Dist. Width 12.3 % (11.5-14.5)
[2024-12-08 03:46] LABS: ALT (SGPT) 29 U/L (0-50); AST (SGOT) 149 U/L (17-59); Albumin 3.7 g/dl (3.5-5.0); Alkaline Phosphatase 88 U/L (38-126); Blood Urea Nitrogen 21 mg/dl (9-20); Calcium 8.7 mg/dl (8.4-10.2); Carbon Dioxide 24 mmol/L (22-30); Chloride 107 mmol/L (98-107); Estimated Creatinine Clearance 74 ml/min; Glucose 131 mg/dl (70-99); Potassium 4.0 mmol/L (3.5-5.1); Sodium 137 mmol/L (135-145); Total Protein 5.8 g/dl (6.3-8.2); eGFR > 60.00
--- NOTE | 2024-12-08 04:00 | PTCARENOTE ---
Pt. assessment remains unchanged. AM labs drawn. Vital signs stable at this time.
[2024-12-08 04:05] LABS: Troponin I 26.100 ng/ml
--- NOTE | 2024-12-08 07:38 | W.PN.HOSP.TC ---
Today's Communication/Plan
-
Continue to monitor for symptoms following heart catheterization
Continue Eliquis, Plavix, Aspirin
Assessment / Plan
Assessment / Plan
Mr. Mccloud is an 84-year-old male with a medical history of CAD (AK with stents x 4), LBBB, permanent A-fib, hypertension, PMR, and NIDDM who presented with left chest pain at rest and diaphoresis. His blood pressure was initially uncontrolled with
a BP reading of 181/117 in the ED. He was found to be in A-fib with RVR heart rate around 100. Labs were significant for a troponin of 0.08 initially which rapidly increased to 4.9 on repeat. He was started on IV heparin drip and sublingual nitro
with improvement in his chest pain. He has been admitted for further evaluation and management. Of note patient reports sometimes forgetting to take some of his medications.
NSTEMI:
- Troponin peak yesterday at 29.7, 26.1 today
- S/p heart catheterization. Single-vessel obstructive coronary artery disease was found in the mid RCA with 90% stenosis. Moderately elevated LV filling pressure was also noted. Successful IVUS guided PCI with AAKASH to RCA was performed.
- Echocardiogram shows newly reduced ejection fraction of 30 to 35% with inferior and possibly septal wall hypokinesis
- Cardiology following, plan to monitor for 24 hours with likely d/c tomorrow
- Chest pain-free currently
- Continue triple therapy for 1 week with Eliquis, Plavix and aspirin, then Eliquis and Plavix alone for 6 months, and high intensity statin therapy was also recommended to achieve LDL of less than 55.
Acute HFrEF:
- Echo this admission showing newly reduced ejection fraction of 30 to 35% with inferior and possibly septal wall hypokinesis
- Possibly ischemic, cardiology tentatively planning coronary angiography today
- Continue blood pressure control with home Imdur and lisinopril, titratable nitro drip if needed
- Patient has poorly tolerated beta-blockers in the past, will follow-up with cardiology regarding further recommendations
Essential Hypertension:
- Uncontrolled at time of admission, now better controlled with continuation of home medications
- Continue isosorbide mononitrate 30 mg daily
- Titratable nitro drip has been added as needed for blood pressure control
Permanent A-fib:
- Heart rate now better controlled
- Continue home diltiazem 180 mg p.o. daily home Eliquis 5mg BID
- Continue telemetry monitoring
- Encourage medication adherence
NIDDM:
- Takes metformin 500 mg p.o. twice daily and glimepiride 1 mg p.o. twice daily at home
- Will treat with sliding scale insulin for now while inpatient
- Hemoglobin A1c well-controlled at 6.1%
Daily alcohol use:
- Reports 1 drink of whiskey daily
- AST elevated at 121 within normal ALT, T. bili slightly elevated at 1.6
- Will monitor LFTs
- Continue thiamine
- Encourage alcohol cessation
Enlarged prostate:
- Continue home tamsulosin and finasteride
- Monitor for urinary retention
- Renal function currently within normal limits
GERD:
- Continue home pantoprazole 40 mg p.o. daily
Anticipated Discharge: Within 24 hours
Subjective/Interval History
-
Date of Service: December 08, 2024
Patient was resting in his room when I arrived. He denies any current pain at the moment, and expresses a desire to go home as he 'feels totally fine.' He does not currently have any chest pain, nausea, shortness of breath, jaw pain, abdominal pain
or back pain.
Objective Data
-
Labs:
Laboratory Results
12/07/24 12/08/24
20:09 03:12
WBC 6.9
Hgb 14.5
Hct 40.9
Plt Count 168
APTT > 200 H*
Sodium 137
Potassium 4.0
Chloride 107
Carbon Dioxide 24
BUN 21 H
Creatinine 1.0
Glucose 131 H
Calcium 8.7
Total Bilirubin 2.1 H
AST 149 H
ALT 29
Alkaline Phosphatase 88
Vital Signs:
Vital Signs
Temp Pulse Resp BP Pulse Ox
98 F 68 23 167/81 97
12/08/24 03:16 12/08/24 06:30 12/08/24 06:30 12/08/24 06:03 12/08/24 07:37
I&O
12/07/24 12/08/24 12/09/24
06:59 06:59 06:59
Intake Total 110 / 110
Output Total 600 / 600 1400 / 1400
Balance -600 / -600 -1290 / -1290
Review of Systems
-
History Source: Patient
Constitutional: Reports No Symptoms
Respiratory: Reports No Symptoms
Cardiac: Reports No Symptoms
Abdomen/GI: Denies Abdominal Pain, Nausea, Vomiting, Diarrhea or Constipated
Musculoskeletal: Denies Joint Pain
Neuro: Denies Dizzy, Headache, Weakness or Numbness
Physical Exam
-
General: Well Developed, Well Nourished, No Apparent Distress and Comfortable
HEENT: Normocephalic and Atraumatic
Respiratory: Clear to Auscultation
Cardiac: Irregular Rhythm
GI: Soft, Nontender and Normal Bowel Sounds
Musculoskeletal: No Edema
Skin: Warm and Dry
Neuro: Awake, Alert and Oriented
Psych: Calm
[2024-12-08] MEDS: VISBIOME 1 CAP PO ×2 (08:20→19:21)
[2024-12-08] MEDS: CARDIZEM CD 180 MG PO (08:20)
[2024-12-08] MEDS: ELIQUIS 5 MG PO ×2 (08:21→19:21)
[2024-12-08] MEDS: PROTONIX 40 MG PO (08:21)
[2024-12-08] MEDS: PLAVIX 75 MG PO (08:21)
[2024-12-08] MEDS: LOW STRENGTH ASPIRIN 81 MG PO (08:21)
[2024-12-08] MEDS: IMDUR (EXTENDED RELEASE) 30 MG PO (08:22)
[2024-12-08] MEDS: VITAMIN D3 (cholecalciferol) 25 MCG PO (08:22)
[2024-12-08] MEDS: VITAMIN B1 250 MG PO (08:22)
[2024-12-08] MEDS: COREG 6.25 MG PO (08:25)
--- NOTE | 2024-12-08 08:25 | W.PN.CD ---
Today's Communication / Plan
-
Switch diltiazem to metoprolol
Switch lisinopril to valsartan
Triple therapy for 1 week then stop aspirin
Watch on telemetry for another 24 hours. Potential discharge tomorrow.
Impression / Plan
-
NSTEMI
- S/p successful IVUS guided PCI with AAKASH to RCA (overlapping 3.0 x 38 and 3.0 x 26 mm [place] frontier drug-eluting stents postdilated to high-pressure with a 3.5 mm NC balloon)
- now chest pain free.
- Continue Eliquis and DAPT for 1 week then stop aspirin
- Start metoprolol succinate 50 mg BID
- Increase atorvastatin to 80 mg daily
Heart failure with mildly reduced ejection fraction
- New this admission. Likely due to ischemic cardiomyopathy.
- TTE 12/07/2024: LVEF 30-35%, inferior wall hypokinesis, valves not assessed
- GDMT
- BB: start metoprolol succinate 50 mg BID
- RICHARD/ARB/ARNI: switch lisinopril to valsartan 40 mg BID
- Case management to winter SGLT2 inhibitor
- Start low-dose spironolactone tomorrow if labs look ok
- Will need repeat TTE in 3 months to reevaluate LVEF for primary prevention ICD
- Appears euvolemic for now. No diuretic.
HTN emergency - on arrival to ER.
- BP is now improved though still above goal
- Start metoprolol as above and switch lisinopril to valsartan
Afib - permanent.
- rate controlled and asymptomatic.
- Will stop diltiazem and switch Toprol succinate given reduced LVEF
- Continue Eliquis 5 mg BID
HLD -
- Increase atorvastatin to 80 mg daily
- goal LDL < 55.
LBBB - chronic, stable.
Subjective: no complaints. He is asymptomatic.
Telemetry: atrial fibrillation, rate controlled, NSVT prior to PCI but none since then
Physical Exam
Vital Signs/Labs
Vital Signs
Temp Pulse Resp BP Pulse Ox
98 F 70 23 135/92 97
12/08/24 03:16 12/08/24 08:20 12/08/24 06:30 12/08/24 08:20 12/08/24 07:37
12/07/24 12/08/24 12/09/24
06:59 06:59 06:59
Actual Weight 259 lb 14.8 oz 259 lb 7.745 oz
12/08/24 03:12
12/08/24 03:12
APTT > 200 Sec (23.4-35.0) H* 12/07/24 20:09
Magnesium 1.7 mg/dl (1.6-2.3) 12/07/24 09:16
Triglycerides 154 mg/dl (10-149) H 12/07/24 09:16
LDL Cholesterol, Calc 71 mg/dl 12/07/24 09:16
VLDL Cholesterol, Calc 30 mg/dl (0-30) 12/07/24 09:16
HDL Cholesterol 54 mg/dl 12/07/24 09:16
LAB Results
12/06/24 12/07/24 12/07/24
21:07 00:00 05:01
Troponin I 0.089 H* Cancelled 4.940 H* D
12/07/24 12/07/24 12/07/24
09:16 16:42 18:00
Troponin I 6.750 H* D 19.700 H* D Cancelled
12/07/24 12/08/24
20:09 03:12
Troponin I 29.700 H* D 26.100 H*
Physical Exam
Constitutional: No acute distress and Comfortable
Cardiovascular: Pedal edema is absent, Rhythm/rate is irregular, S1S2 is normal and Murmur/rub/gallop absent
Respiratory: Respiratory effort normal and Lungs clear to auscul.
Neuro/Psych: AO x 3
Other: Cath Site (soft, no swelling or erythema)
Data Reviewed
-
Date of Service: December 08, 2024
Medical Decision Making: Reviewed Test Results and Test Interpretation
EKG: Tracing Personally Visualized and interpreted
Echo: Tracing Personally Visualized and interpreted and Report Reviewed by me
Labs: Labs Reviewed by me
[2024-12-08] MEDS: ZESTRIL PO (10:05)
--- NOTE | 2024-12-08 16:15 | PTCARENOTE ---
Rec'd pt at 1500 awake alert and oriented resting in bed. Overall states he feels good. Denies pain or discomfort. Denies headache or dizziness. CÉSAR. Has been oob ambulating in the room and using the bathroom several times today. Gait has been
steady. Skin is pink wm and dry. R radial cath site open to air. Intact-no swelling or drainage. Good CMS checks.Respirs are unlabored on RA with sats of 97%. BS are sl decreased at the bases otherwise clear. Denies shortness of breath. Monitor AFib
with BB config. Denies chest pain. + pulses. VS as documented. No edema. Abd is round and soft with + BS. Good appetite for lunch earlier. Voiding in the toilet. Capped ints intact x2 in the L arm. Pt able to reposition himself. Assisted pt with
partial CHG bath and pt did own oral care. Plan of care reviewed with pt and call lal in reach. Pt for transfer to IVU.
[2024-12-08 16:36] LABS: Glucose - Point of Care 144 mg/dl (70-99)
--- NOTE | 2024-12-08 16:39 | PTCARENOTE ---
Pt for transfer to IVU - Report called, will transfer via wheelchair.
--- NOTE | 2024-12-08 17:00 | PTCARENOTE ---
Pt transferred via wheelchair to IVU. No changes
[2024-12-08] MEDS: LIPITOR 80 MG PO (17:11)
--- NOTE | 2024-12-08 17:23 | PTCARENOTE ---
received patient as transfer from ICU to room 8189. Pt AAOX3. oriented to room and unit. pt denies pain. afib on telemtry heart rate in 60s. right radial cath site DAVID. pulse easily palpable. pt updated on plan of care.
[2024-12-08] MEDS: TOPROL XL 50 MG PO (19:21)
[2024-12-08 21:58] LABS: Glucose - Point of Care 134 mg/dl (70-99)
[2024-12-08] MEDS: FLOMAX 0.8 MG PO (22:27)
[2024-12-08] MEDS: PROSCAR 5 MG PO (22:27)
--- NOTE | 2024-12-09 01:26 | PTCARENOTE ---
Pt AAOx3 and EKWOK bilaterally. Tele remains Afib w/ BBBC, HR in the 40-60's at rest. Denies any pain or discomfort. Right radial site DAVID, no hematoma present at this time. Patient educated on activity restrictions. Patient voiding in bathroom,
ambulates self. Plan of care reviewed, call lal within reach.
[2024-12-09 03:30] VITALS: BP 155/85; BMI 32.6
[2024-12-09 04:11] LABS: Hematocrit 42.5 % (39.0-52.0); Hemoglobin 14.7 g/dL (13.0-18.0); Mean Corp Hgb Conc. 34.6 g/dL (33.0-37.0); Mean Corpuscular Volume 97.7 fL (80.0-94.0); Nucleated Red Blood Cells % 0 % (-); Platelet Count 180 10^3/uL (130-400); Red Cell Dist. Width 12.1 % (11.5-14.5)
[2024-12-09 04:39] LABS: ALT (SGPT) 25 U/L (0-50); AST (SGOT) 71 U/L (17-59); Albumin 4.1 g/dl (3.5-5.0); Alkaline Phosphatase 92 U/L (38-126); Blood Urea Nitrogen 20 mg/dl (9-20); Calcium 9.2 mg/dl (8.4-10.2); Carbon Dioxide 22 mmol/L (22-30); Chloride 106 mmol/L (98-107); Estimated Creatinine Clearance 66 ml/min; Glucose 143 mg/dl (70-99); Potassium 4.2 mmol/L (3.5-5.1); Sodium 137 mmol/L (135-145); Total Protein 6.5 g/dl (6.3-8.2); eGFR > 60.00
--- NOTE | 2024-12-09 07:06 | W.PN.HOSP.TC ---
Today's Communication/Plan
-
Discharge planning today
Assessment / Plan
Assessment / Plan
Mr. Mccloud is an 84-year-old male with a medical history of CAD ([place] with stents x 4), LBBB, permanent A-fib, hypertension, PMR, and NIDDM who presented with left chest pain at rest and diaphoresis. His blood pressure was initially uncontrolled with
a BP reading of 181/117 in the ED. He was found to be in A-fib with RVR heart rate around 100. Labs were significant for a troponin of 0.08 initially which rapidly increased to 4.9 on repeat. He was started on IV heparin drip and sublingual nitro
with improvement in his chest pain. He has been admitted for further evaluation and management. Of note patient reports sometimes forgetting to take some of his medications.
NSTEMI:
- Troponin peak 12/07 at 29.7, 26.1 12/08
- S/p heart catheterization. Single-vessel obstructive coronary artery disease was found in the mid RCA with 90% stenosis. Moderately elevated LV filling pressure was also noted. Successful IVUS guided PCI with AAKASH to RCA was performed.
- Echocardiogram shows newly reduced ejection fraction of 30 to 35% with inferior and possibly septal wall hypokinesis
- Patient continues to be pain free
- Continue metoprolol 50mg BID, Valsartan 40mg BID, Imdur 30mg daily
- Start spironolactone 12.5mg upon discharge
- Continue triple therapy for 1 week after cath (End 12/14) with Eliquis, Plavix and aspirin, then Eliquis and Plavix alone for 6 months, and high intensity statin therapy was also recommended to achieve LDL of less than 55.
- Recommend close follow up with cardiology and repeat echo in 3 months to reevaluate reduced EF seen during this hospitalization
Acute HFrEF:
- Echo this admission showing newly reduced ejection fraction of 30 to 35% with inferior and possibly septal wall hypokinesis
- Possibly ischemic, cardiology tentatively planning coronary angiography today
- Continue blood pressure control with home Imdur and lisinopril, titratable nitro drip if needed
- Patient has poorly tolerated beta-blockers in the past, will follow-up with cardiology regarding further recommendations
Essential Hypertension:
- Uncontrolled at time of admission, now better controlled with continuation of home medications
- Continue isosorbide mononitrate 30 mg daily
- Titratable nitro drip as needed for blood pressure control
Permanent A-fib:
- Heart rate now better controlled
- Continue home Eliquis 5mg BID
- Continue telemetry monitoring
- Encourage medication adherence
NIDDM:
- Takes metformin 500 mg p.o. twice daily and glimepiride 1 mg p.o. twice daily at home
- Will treat with sliding scale insulin for now while inpatient
- Hemoglobin A1c well-controlled at 6.1%
Daily alcohol use:
- Reports 1 drink of whiskey daily
- AST elevated at 121 within normal ALT, T. bili slightly elevated at 1.6
- Will monitor LFTs
- Continue thiamine
- Encourage alcohol cessation
Enlarged prostate:
- Continue home tamsulosin and finasteride
- Monitor for urinary retention
- Renal function currently within normal limits
GERD:
- Continue home pantoprazole 40 mg p.o. daily
Anticipated Discharge: Today
Subjective/Interval History
-
Date of Service: December 09, 2024
Patient was dressed in his room and walking around when I arrived. He denies shortness of breath, jaw pain, chest pain, fevers, chills, abdominal pain, nausea or vomiting. He says he feels fine and is ready to go home.
Objective Data
-
Labs:
Laboratory Results
12/09/24
03:29
WBC 7.9
Hgb 14.7
Hct 42.5
Plt Count 180
Sodium 137
Potassium 4.2
Chloride 106
Carbon Dioxide 22
BUN 20
Creatinine 1.1
Glucose 143 H
Calcium 9.2
Total Bilirubin 1.9 H
AST 71 H
ALT 25
Alkaline Phosphatase 92
Vital Signs:
Vital Signs
Temp Pulse Resp BP Pulse Ox
97.8 F 61 18 155/85 97
12/09/24 03:31 12/09/24 04:00 12/09/24 03:31 12/09/24 03:30 12/09/24 03:31
I&O
12/08/24 12/09/24 12/10/24
06:59 06:59 06:59
Intake Total 110 / 110 1050 / 1050
Output Total 1400 / 1400
Balance -1290 / -1290 1050 / 1050
Review of Systems
-
History Source: Patient
Constitutional: Denies Fever, No Appetite, Chills or Weakness
Respiratory: Denies Cough or Trouble Breathing
Cardiac: Denies Chest Pain or Palpitations
Abdomen/GI: Denies Abdominal Pain, Nausea, Vomiting, Diarrhea or Constipated
Musculoskeletal: Denies Joint Pain
Neuro: Denies Dizzy, Headache or Weakness
Physical Exam
-
General: Well Developed, Well Nourished, No Apparent Distress and Comfortable
HEENT: Normocephalic and Atraumatic
Respiratory: Clear to Auscultation
Cardiac: S1/S2 and Irregular Rhythm
Skin: Warm and Dry
Neuro: Awake, Alert and Oriented
Psych: Calm
[2024-12-09 08:08] VITALS: BP 164/96
[2024-12-09 08:45] LABS: Glucose - Point of Care 127 mg/dl (70-99)
[2024-12-09] MEDS: VITAMIN B1 250 MG PO (08:49)
[2024-12-09] MEDS: IMDUR (EXTENDED RELEASE) 30 MG PO (08:52)
[2024-12-09] MEDS: DIOVAN 40 MG PO (08:53)
[2024-12-09] MEDS: VISBIOME 1 CAP PO (08:53)
[2024-12-09] MEDS: ELIQUIS 5 MG PO (08:53)
[2024-12-09] MEDS: PLAVIX 75 MG PO (08:53)
[2024-12-09] MEDS: TOPROL XL 50 MG PO (08:54)
[2024-12-09] MEDS: PROTONIX 40 MG PO (08:54)
[2024-12-09] MEDS: LOW STRENGTH ASPIRIN 81 MG PO (08:54)
[2024-12-09] MEDS: VITAMIN D3 (cholecalciferol) 25 MCG PO (08:55)
--- NOTE | 2024-12-09 10:07 | CM ---
called by RN, pt req VN, [facility]able to [facility], referral faxed.
--- NOTE | 2024-12-09 10:08 | W.PN.CD ---
Today's Communication / Plan
-
He is stable for discharge from a cardiovascular standpoint.
He will be on triple therapy (Eliquis, aspirin, and Plavix) until 12/14/2024 at which point he should stop aspirin.
Medication changes: Diltiazem switched to metoprolol succinate 50 mg daily, lisinopril switched to valsartan 80 mg twice daily, atorvastatin increased to 80 mg daily, spironolactone 12.5 mg started
He will need labs in 1 week which I have sent electronically
Follow-up as scheduled in our office
Impression / Plan
-
NSTEMI
- S/p successful IVUS guided PCI with AAKASH to RCA (overlapping 3.0 x 38 and 3.0 x 26 mm [place] frontier drug-eluting stents postdilated to high-pressure with a 3.5 mm NC balloon)
- now chest pain free.
- Continue Eliquis and DAPT for 1 week then stop aspirin
- Continue metoprolol succinate 50 mg BID
- Increase atorvastatin to 80 mg daily
Heart failure with mildly reduced ejection fraction
- New this admission. Likely due to ischemic cardiomyopathy.
- TTE 12/07/2024: LVEF 30-35%, inferior wall hypokinesis, valves not assessed
- GDMT
- BB: Continue metoprolol succinate 50 mg BID
- RICHARD/ARB/ARNI: switch lisinopril to valsartan 80 mg BID; assess for Entresto outpatient
- Case management to winter SGLT2 inhibitor
- Start low-dose spironolactone tomorrow
- Will need repeat TTE in 3 months to reevaluate LVEF for primary prevention ICD
- Appears euvolemic for now. No diuretic.
HTN emergency - on arrival to ER.
- BP is now improved though still above goal
- Start metoprolol as above and switch lisinopril to valsartan
Afib - permanent.
- rate controlled and asymptomatic.
- Will stop diltiazem and switch to metoprolol succinate given reduced LVEF
- Continue Eliquis 5 mg BID
HLD -
- Increase atorvastatin to 80 mg daily
- goal LDL < 55.
LBBB - chronic, stable.
Subjective: no complaints. He is asymptomatic.
Telemetry: atrial fibrillation, rate controlled
Physical Exam
Vital Signs/Labs
Vital Signs
Temp Pulse Resp BP Pulse Ox
98.3 F 55 20 164/96 98
12/09/24 08:08 12/09/24 10:00 12/09/24 08:08 12/09/24 08:08 12/09/24 08:08
12/08/24 12/09/24 12/10/24
06:59 06:59 06:59
Actual Weight 259 lb 7.745 oz 253 lb 15.56 oz
12/09/24 03:29
12/09/24 03:29
APTT > 200 Sec (23.4-35.0) H* 12/07/24 20:09
Magnesium 1.7 mg/dl (1.6-2.3) 12/07/24 09:16
Triglycerides 154 mg/dl (10-149) H 12/07/24 09:16
LDL Cholesterol, Calc 71 mg/dl 12/07/24 09:16
VLDL Cholesterol, Calc 30 mg/dl (0-30) 12/07/24 09:16
HDL Cholesterol 54 mg/dl 12/07/24 09:16
LAB Results
12/06/24 12/07/24 12/07/24
21:07 00:00 05:01
Troponin I 0.089 H* Cancelled 4.940 H* D
12/07/24 12/07/24 12/07/24
09:16 16:42 18:00
Troponin I 6.750 H* D 19.700 H* D Cancelled
12/07/24 12/08/24
20:09 03:12
Troponin I 29.700 H* D 26.100 H*
Physical Exam
Constitutional: No acute distress and Comfortable
Cardiovascular: Pedal edema is absent, Rhythm/rate is irregular, S1S2 is normal and Murmur/rub/gallop absent
Respiratory: Respiratory effort normal and Lungs clear to auscul.
Neuro/Psych: AO x 3
Data Reviewed
-
Date of Service: December 09, 2024
Medical Decision Making: Reviewed Test Results, Test Interpretation and Review of Case with other Provider
EKG: Tracing Personally Visualized and interpreted
Echo: Report Reviewed by me
Labs: Labs Reviewed by me
[2024-12-09] MEDS: ALDACTONE 12.5 MG PO (11:08)
--- NOTE | 2024-12-09 11:57 | PTCARENOTE ---
Discharge instructions reviewed with Pt, he expressed understanding. He asked if he could have VN. Case management and hospitalist resident notifed. Case management to set up [facility] VN. Pt's daughter set up ride with [employer] for him to get home. He has no
family close by.
--- NOTE | 2024-12-09 13:36 | W.DCSUMMARY ---
Discharge Summary
Discharge Data
Date of Admission: 12/06/24
Date of Discharge: 12/09/24
-
Pending Results: No
Hospital Course
Discharging Physician : Dr. Leonardo
Disposition : Good
Principal Discharge diagnosis : NSTEMI
Chronic Discharge diagnosis : Coronary Artery Disease s/p four stents, history of IA, cardiomyopathy with EF on 47% noted on echo from 10/2024, paroxysmal atrial fibrillation, essential hypertension, type II diabetes, polymyalgia rheumatica
Hospital Course : This is an 84 y/o male with pmhx of Coronary Artery Disease s/p four stents, history of IA, cardiomyopathy with EF on 47% noted on echo from 10/2024, paroxysmal atrial fibrillation, essential hypertension, type II diabetes,
polymyalgia rheumatica who presented to the ED on 12/06/2024 with chest pain radiating from the left axilla to the left breast, accompanied by an episode of diaphoresis. The pain peaked at 6/10 pain, but was 1/10 upon presentation to the ED. Prior to
this episode he states that he forgot to take his morning and evening medications, and believes his last dose of Eliquis may have been on 12/05/2024.
In the ED, his blood pressure was elevated at 181/117. EKG showed atrial fibrillation with RVR and T wave inversions. Troponins were 0.089 on arrival He was started on an IV heparin drip with bolus, and IV nitro. His Imdur, metformin and glimepiride
were all held, as well as his Eliquis. Cardiology was consulted and he was admitted to the hospital for further management.
On 12/07/2024 his troponin increased to 4.94 at 6AM, and 6.750 at 9AM, 19.7 at 4PM. An echo was performed which showed new moderately reduced left ventricular systolic function with LLVEF of 30-35% (Previously 50-55% in 10/2024), and new hypokenesis
of the inferior wall and possibly septal wall. Repeat EKG showed patient was still in atrial fibrillation. A left heart catheterization was performed. Single-vessel obstructive coronary artery disease was found in the mid RCA with 90% stenosis.
Moderately elevated LV filling pressure was also noted. Successful IVUS guided PCI with AAKASH to RCA was performed. Following catheterization, cardiology recommended triple therapy for 1 week with Eliquis, Plavix and aspirin, then Eliquis and Plavix
alone for 6 months, and high intensity statin therapy was also recommended to achieve LDL of less than 55. Following catheterization, his troponin were 29.7 at 8PM.
On 12/08, his troponin had decreased to 26.1 at 3AM. He remained symptom free throughout the day, and into the next day. On 12/09/2024 he was found to be medically stable and discharged to home. He is to take triple therapy with Aspirin, Eliquis and
Plavix until 12/14/2024 (1 week after catheterization), an increased dose of 80mg atorvastatin with an LDL goal of less than 55, and metoprolol, spironolactone and Valsartan. His lisinopril and diltiazem were both stopped during this hospitalization.
Important imaging findings : N/a
Procedure findings : A left heart catheterization was performed. Single-vessel obstructive coronary artery disease was found in the mid RCA with 90% stenosis. Moderately elevated LV filling pressure was also noted. Successful IVUS guided PCI with
AAKASH to RCA was performed.
Discharge Plan
-
Patient Disposition: Home (Routine Discharge)
Discharge Diagnosis/Procedures: Non-ST Elevated Myocardial Infarct
Condition: Good
Diet: Low Sodium and No added salt
Activity: No restrictions
Driving Restrictions: As prior to admission
Bathing Restrictions: None
Blood Work: BMP in 1 week
Other Services: VN
Stand Alone Forms: DC Instructions- Cath/EP Lab
Referrals:
[facility] [Outside] - 01/07/25 9:00 am
Referral Note: Cardiac Rehab Orientation appointment is on 01/07 at 9 AM
The Cardiac Rehab gym is located on the first floor of the [facility].
Ellyn Carmichael CRNP [Specified Professional Personl, Cardiology] - 12/28/24 8:40 am
Louis Serrano MD [Family Provider, Internal Medicine] - in less than 1 week
Additional Discharge Medication Instructions: You had a catheterization during this visit. For one full week after your catheterization, please take Eliquis 5mg twice daily, Plavix 75mg once daily, and aspirin 81 mg once daily.
After a week has passed since your catheterization (12/14/2024), STOP taking aspirin and only take Eliquis 5mg twice daily and Plavix 75mg once daily.
The dosage of your atorvastatin was changed during your hospitalization. Please take 80mg once daily in the evenings. Your goal LDL cholesterol is LESS THAN 55.
Three new blood pressure medications were added to your list; metoprolol, Spironolactone and Valsartan. Please take Metoprolol and Valsartan twice daily, and Spironolactone once daily
STOP taking Lisinopril and Diltiazem.
Prescriptions:
New
atorvastatin 80 mg Tablet
80 mg PO QPM Qty: 30 0RF
aspirin 81 mg Tablet,Chewable
81 mg PO DAILY Qty: 7 0RF
clopidogrel 75 mg Tablet
75 mg PO DAILY Qty: 30 0RF
metoprolol succinate 50 mg Tablet Extended Release 24 Hr
50 mg PO BID Qty: 60 0RF
valsartan 80 mg Tablet
80 mg PO BID Qty: 60 0RF
spironolactone 25 mg Tablet
12.5 mg PO DAILY Qty: 30 0RF
Continued
tamsulosin 0.4 MG capsule
0.8 mg PO HS
cholecalciferol (vitamin D3) [Vitamin D3] 1,000 UNIT capsule
1,000 unit PO DAILY
pantoprazole [Protonix] 40 mg Tablet,Delayed Release (Dr/Ec)
40 mg PO DAILY Qty: 0
nitroglycerin 0.4 MG tablet, sublingual
0.4 mg sublingual [id number] PRN (Reason: chest pain) Qty: 25 3RF
metformin 500 mg Tablet
500 mg PO BID
isosorbide mononitrate 30 mg Tablet Extended Release 24 Hr
30 mg PO DAILY
glimepiride 1 MG tablet
1 mg PO BID Qty: 60 0RF
Rx Instructions:
breakfast and dinner
Eliquis 5 mg tablet
5 mg PO BID
finasteride 5 mg tablet
5 mg PO HS
Probiotic
1 cap PO BID
Tylenol
1,000 mg PO Q6HPRN PRN (Reason: mild pain)
thiamine HCl (vitamin B1) 250 mg tablet
250 mg PO DAILY Qty: 1 0RF
Discontinued
diltiazem HCl 180 MG capsule,extended release 24hr
180 mg PO DAILY
lisinopril 20 MG tablet
20 mg PO DAILY
Ambien
10 mg PO HS
atorvastatin 20 MG tablet
40 mg PO QPM
Discharge Orders:
Discharge Patient (As Directed); Ordered 12/09/24
Ordered By: Laxmi Rodgers
Discharge Date and Time
Print Language: MONGOLIAN
== END 2024-12-09 11:55 | disposition home health service (06) | DRG 321 ==
LOC: IVU 23:44
PROVIDERS: Clinical Nurse Specialist Family Health; Registered Nurse; Student in an Organized Health Care Education/Training Program; ADMITTING PHYSICIAN Internal Medicine; ATTENDING PHYSICIAN Internal Medicine; CONSULT PHYSICIAN Student in an Organized Health Care Education/Training Program; EMERGENCY PHYSICIAN Student in an Organized Health Care Education/Training Program; FAMILY PHYSICIAN Internal Medicine Geriatric Medicine
PROC: B240ZZ3 Ultrasonography of Single Coronary Artery, Intravascular (ICD-10-PCS; 2024-12-07)
PROC: 027035Z Dilation of Coronary Artery, One Artery with Two Drug-eluting Intraluminal Devices, Percutaneous Approach (ICD-10-PCS; 2024-12-07)
PROC: 4A023N7 Measurement of Cardiac Sampling and Pressure, Left Heart, Percutaneous Approach (ICD-10-PCS; 2024-12-07)
PROC: B211YZZ Fluoroscopy of Multiple Coronary Arteries using Other Contrast (ICD-10-PCS; 2024-12-07)
DX: I21.4 Non-ST elevation (NSTEMI) myocardial infarction (principal); I50.21 Acute systolic (congestive) heart failure; I16.1 Hypertensive emergency; I48.21 Permanent atrial fibrillation; I25.5 Ischemic cardiomyopathy; I25.10 Atherosclerotic heart disease of native coronary artery without angina pectoris; I44.7 Left bundle-branch block, unspecified; I10 Essential (primary) hypertension; E78.00 Pure hypercholesterolemia, unspecified; E11.9 Type 2 diabetes mellitus without complications; M35.3 Polymyalgia rheumatica; N40.0 Benign prostatic hyperplasia without lower urinary tract symptoms; K21.9 Gastro-esophageal reflux disease without esophagitis; I25.2 Old myocardial infarction; Z88.2 Allergy status to sulfonamides; Z79.01 Long term (current) use of anticoagulants; Z79.84 Long term (current) use of oral hypoglycemic drugs; Z79.899 Other long term (current) drug therapy; Z87.891 Personal history of nicotine dependence; Z91.199 Patient's noncompliance with other medical treatment and regimen due to unspecified reason; Z95.5 Presence of coronary angioplasty implant and graft; Z96.642 Presence of left artificial hip joint; Z79.82 Long term (current) use of aspirin; Z79.02 Long term (current) use of antithrombotics/antiplatelets
CPT/HCPCS: 36415; 73700; 80053; 80061; 82962; 83036; 83735; 84450; 84460; 84484; 85025; 85027; 85347; 85652; 85730; 86140; 92978; 93005; 93308; 93458; 96365; 96366; 99152; 99153; 99285; C1725; C1753; C1769; C1874; C1894; C9600; Q9950; Q9967

== ENCOUNTER → 2024-12-17 09:25 | Outpatient (REF) | payer MEDICARE, SELFPAY ==
[2024-12-17 10:57] LABS: Hematocrit 43.4 % (39.0-52.0); Hemoglobin 15.3 g/dL (13.0-18.0); Mean Corp Hgb Conc. 35.3 g/dL (33.0-37.0); Mean Corpuscular Volume 98.6 fL (80.0-94.0); Nucleated Red Blood Cells % 0 % (-); Platelet Count 216 10^3/uL (130-400); Red Cell Dist. Width 12.0 % (11.5-14.5)
[2024-12-17 11:26] LABS: ALT (SGPT) 18 U/L (0-50); AST (SGOT) 21 U/L (17-59); Albumin 4.1 g/dl (3.5-5.0); Alkaline Phosphatase 111 U/L (38-126); Blood Urea Nitrogen 18 mg/dl (9-20); Calcium 9.3 mg/dl (8.4-10.2); Carbon Dioxide 22 mmol/L (22-30); Chloride 109 mmol/L (98-107); Glucose 138 mg/dl (70-99); Potassium 4.2 mmol/L (3.5-5.1); Sodium 141 mmol/L (135-145); Total Protein 6.4 g/dl (6.3-8.2); eGFR > 60.00
[2024-12-17 11:37] LABS: Microalb - Urine Creatinine 79.200 mg/dl
[2024-12-17 12:16] LABS: Vitamin B12 496 pg/ml (239-931)
[2024-12-17 13:11] LABS: Microalbumin, Random Urine 45.1 mg/dl (0.6-1.7)
== END ==
LOC: REG 09:25
PROVIDERS: ATTENDING PHYSICIAN Nurse Practitioner Primary Care
DX: E78.2 Mixed hyperlipidemia (principal); E11.9 Type 2 diabetes mellitus without complications; I25.10 Atherosclerotic heart disease of native coronary artery without angina pectoris; R53.83 Other fatigue; Z79.899 Other long term (current) drug therapy
CPT/HCPCS: 36415; 80053; 82043; 82570; 82607; 84439; 84443; 85025

== ENCOUNTER → 2024-12-26 09:46 | Outpatient (REF) | payer MEDICARE, SELFPAY | LOC: REG 09:46 | PROVIDERS: ATTENDING PHYSICIAN Nurse Practitioner Primary Care; FAMILY PHYSICIAN Internal Medicine Geriatric Medicine | DX: E11.9 Type 2 diabetes mellitus without complications (principal) | CPT/HCPCS: 36415 ==

== ENCOUNTER 2025-01-11 10:33 | Outpatient (RCR) | payer MEDICARE, SELFPAY ==
[2025-01-07 10:42] LABS: Glucose - Point of Care 165 mg/dl (70-99)
[2025-01-09 08:02] LABS: Glucose - Point of Care 221 mg/dl (70-99)
[2025-01-09 08:31] LABS: Glucose - Point of Care 236 mg/dl (70-99)
[2025-01-11 08:06] LABS: Glucose - Point of Care 212 mg/dl (70-99)
[2025-01-11 09:01] LABS: Glucose - Point of Care 154 mg/dl (70-99)
== END 2025-01-11 23:59 | disposition home or self-care (01) ==
LOC: CRHB 10:33
PROVIDERS: ATTENDING PHYSICIAN Internal Medicine Cardiovascular Disease
DX: I25.10 Atherosclerotic heart disease of native coronary artery without angina pectoris (principal); I25.5 Ischemic cardiomyopathy; Z95.5 Presence of coronary angioplasty implant and graft
CPT/HCPCS: 82962; G0422; G0423

== ENCOUNTER 2025-02-06 08:46 | Outpatient (RCR) | payer MEDICARE, SELFPAY ==
[2025-01-14 08:06] LABS: Glucose - Point of Care 181 mg/dl (70-99)
[2025-01-14 08:45] LABS: Glucose - Point of Care 169 mg/dl (70-99)
[2025-01-16 08:08] LABS: Glucose - Point of Care 185 mg/dl (70-99)
[2025-01-16 09:04] LABS: Glucose - Point of Care 175 mg/dl (70-99)
[2025-01-18 09:20] LABS: Glucose - Point of Care 236 mg/dl (70-99)
[2025-01-18 10:11] LABS: Glucose - Point of Care 196 mg/dl (70-99)
[2025-01-21 07:57] LABS: Glucose - Point of Care 173 mg/dl (70-99)
[2025-01-21 08:56] LABS: Glucose - Point of Care 161 mg/dl (70-99)
== END 2025-02-06 23:59 | disposition home or self-care (01) ==
LOC: CRHB 08:46
PROVIDERS: ATTENDING PHYSICIAN Internal Medicine Cardiovascular Disease
DX: I25.10 Atherosclerotic heart disease of native coronary artery without angina pectoris (principal); I25.5 Ischemic cardiomyopathy (principal); I25.2 Old myocardial infarction (principal); Z95.5 Presence of coronary angioplasty implant and graft; I21.4 Non-ST elevation (NSTEMI) myocardial infarction
CPT/HCPCS: 82962; G0422; G0423

== ENCOUNTER → 2025-03-11 09:49 | Outpatient (REF) | payer MEDICARE, SELFPAY | LOC: RCS 09:49 | PROVIDERS: ATTENDING PHYSICIAN Nurse Practitioner Gerontology; FAMILY PHYSICIAN Internal Medicine Geriatric Medicine | DX: I25.5 Ischemic cardiomyopathy (principal) | CPT/HCPCS: 93306 ==

== ENCOUNTER 2025-03-13 10:02 | Outpatient (RCR) | payer MEDICARE, SELFPAY | END 2025-03-13 23:59 | disposition home or self-care (01) | LOC: CRHB 10:02 | PROVIDERS: ATTENDING PHYSICIAN Internal Medicine Cardiovascular Disease | DX: I21.4 Non-ST elevation (NSTEMI) myocardial infarction (principal); I25.10 Atherosclerotic heart disease of native coronary artery without angina pectoris (principal); Z95.5 Presence of coronary angioplasty implant and graft; I25.2 Old myocardial infarction; I25.5 Ischemic cardiomyopathy | CPT/HCPCS: G0422; G0423 ==